=== PATIENT | male | born 1995 | race African-American/Black ===

== ENCOUNTER 2020-01-07 20:42 | Emergency (ER) | payer MEDICAID ==
--- NOTE | 2020-01-07 21:22 | ED ---
Medical Screening - HPI Summary HPI Summary: Patient from [facility] in [place] complains of increasing thoughts of SI x 1 week. Patient states he has been putting a knife to his throat, and his car keys to his throat, and threatening to harm himself every day. Staff at [facility] has called PD every night for the past 4 nights and [facility], evaluated and then discharged. Patient denies HI , any physical and, any oral intake of toxic substances, EtOH, recreational drug use, fever, cough, sore throat, CP, SOB, N/V/D, abdominal pain, change in urine, change in BM. Medical history is anxiety, ADHD, depression, and autism. - History of Current Complaint Chief Complaint: EDSuicidal Stated Complaint: MHE/SI PER PT Time Seen by Provider: 01/07/20 21:14 Onset/Duration: Started Days Ago PMH/Surg Hx/FS Hx/Imm Hx Endocrine/Hematology History: Denies: Hx Anticoagulant Therapy Cardiovascular History: Denies: Hx Pacemaker/ICD History: Denies: Hx Dialysis Sensory History: Denies: Hx Eye Prosthesis Opthamlomology History: Denies: Hx Legally Blind EENT History: Denies: Hx Deafness Neurological History: Denies: Hx Dementia Infectious Disease History: No Infectious Disease History: Denies: Traveled Outside the [place] in Last 30 Days - Family History Known Family History: Positive: Non-Contributory - Social History Lives: [facility] Alcohol Use: None Substance Use Type: Reports: None Hx Tobacco Use: Yes Review of Systems Constitutional: Negative Eyes: Negative ENT: Negative Cardiovascular: Negative Respiratory: Negative Gastrointestinal: Negative Genitourinary: Negative Musculoskeletal: Negative Skin: Negative Neurological/Mental Status: Negative Psychological: Other All Other Systems Reviewed And Are Negative: Yes Physical Exam Triage Information Reviewed: Yes Vital Signs On Initial Exam: Initial Vitals Temp Pulse Resp BP Pulse Ox 97.2 F 82 20 130/80 97 01/07/20 21:00 01/07/20 21:00 01/07/20 21:00 01/07/20 21:00 01/07/20 21:00 Vital Signs Reviewed: Yes Appearance: Positive: Well-Appearing Skin: Positive: Warm Head/Face: Positive: Normal Head/Face Inspection Eyes: Positive: Normal Neck: Positive: Supple Respiratory/Lung Sounds: Positive: Clear to Auscultation Cardiovascular: Positive: Normal Abdomen Description: Positive: Nontender Musculoskeletal: Positive: Normal Neurological: Positive: Normal Psychiatric: Positive: Normal AVPU Assessment: Alert - [place] Coma Scale Best Eye Response: 4 - Spontaneous Best Motor Response: 6 - Obeys Commands Best Verbal Response: 5 - Oriented Coma Scale Total: 15 Procedures - Sedation Patient Received Moderate/Deep Sedation with Procedure: No Diagnostics - Vital Signs Vital Signs Temp Pulse Resp BP Pulse Ox 01/07/20 21:00 97.2 F 82 20 130/80 97 - Laboratory Result Diagrams: 01/07/20 21:32 01/07/20 21:32 Lab Statement: Any lab studies that have been ordered have been reviewed, and results considered in the medical decision making process. Course/Dx - Course Course Of Treatment: Patient from [facility] in [place] complains of increasing thoughts of SI x 1 week. Patient states he has been putting a knife to his throat, and his car keys to his throat, and threatening to harm himself every day. Staff at [facility] has called PD every night for the past 4 nights and [facility], evaluated and then discharged. Patient denies HI, any physical and, any oral intake of toxic substances, EtOH, recreational drug use, fever, cough, sore throat, CP, SOB, N/V /D, abdominal pain, change in urine, change in BM. Medical history is anxiety, ADHD, depression, and autism. Vital signs within normal limits. - Diagnoses Provider Diagnoses: Depressive episode Discharge ED - Sign-Out/Discharge Documenting (check all that apply): Sign-Out Patient Signing out patient TO: Angie Miguel - Discharge Plan Condition: Stable Disposition: HOME Patient Education Materials: Depression (DC) Referrals: Care [facility] [Outside] - Billing Disposition and Condition Condition: STABLE Disposition: Home
--- OUTSIDE RECORDS SUMMARY | 2020-01-07 21:27 | XMS REPORT | Continuity of Care Document ---
:1995 Author Organization [facility] [place] [facility] Address [address] [place] [address] Phone Care Team Providers Name Role Phone [facility], UNKNOWN Unavailable Unavailable Allergies, Adverse Reactions, Alerts Substance Reaction Status Substance Type Unknown WARNIN allergy(ies) could not be collected because the type is not supported. Please contact [facility] for further details. Medications Medication Instructions Dosage Effective Dates Status Comments (start - stop) divalproex ER 500 mg take 1 tablet by oral 500 MG - Active tablet,extended route every day release 24 hr docusate sodium 100 take 2 capsule by oral 200 MG - Active mg capsule route every day at bedtime as needed Seroquel 100 mg take 1 tablet by oral - Active tablet route twice daily alprazolam 2 mg Take 1 tablet by oral - Active MDD 1 tablet route every night Tylenol 325 mg tablet take 2 tablet by oral 650 MG - Active route every 4 hours as needed as needed for Fever Problems Condition Effective Dates (start - stop) Clinical Status Bipolar affective disorder, currently depressed, mild Adjustment disorder with mixed anxiety and depressed mood Autism spectrum Mood disorder Adjustment disorder with mixed anxiety and depressed mood Autism spectrum PPD screening test Dysuria Adjustment disorder with mixed anxiety and depressed mood Autism spectrum Mood disorder Weight loss PPD screening test Procedure and treatment not carried - out for other reasons Sleep disorder Mood disorder Adjustment disorder with mixed anxiety and depressed mood Autism spectrum Body mass index (BMI) 45.0-49.9, adult Body mass index (BMI) 39.0-39.9, adult - Autism spectrum Adjustment disorder with mixed anxiety and depressed mood Mood disorder Sleep disorder General medical exam Autism spectrum Sleep disorder Adjustment disorder with mixed anxiety and depressed mood PPD screening test Mood disorder Body mass index (BMI) 45.0-49.9, adult - Procedures Procedure Date Procedure Unknown Results Test Name Date and Time Measure Units Reference Range Abnormal Flag Status Comments Unknown Encounters Encounter Practice Location Reason(s) Diagnoses Date Provider Providers Description For Visit Copied on Encounter 0001 - Emergency [facility], Room - [facility] [address] 0 UNKNOWN. . [facility], [place], [address], [place] tel:[phone] - [facility] Bipolar Dec-2 PIETRUSZKIEWIC [facility], Primary affective Z KATE. 57 Care disorder, 9 57 [facility], [facility], Hospitalist Clayton mildAdjustment Program [place], [place], disorder with [address], [address], [place] mixed anxiety [place], tel:+60 [place], [address]. [id number] moodAutism tel:[phone] spectrum [phone] - [facility] Mood Dec- SHIRA ELY. [facility], Primary disorderAdjustm [address] Care ent disorder 9 [facility] [place], [address]. [place], anxiety and tel:[phone] Clayton depressed [address] [place] [address], moodAutism [address], [place] spectrumPPD tel:+60 screening test [phone] 0001 - [facility] Dysuria Dec-0 YARDE DAVINIA. [facility], Walk-In [address] [place], [place], Street, [address]. [place] tel:[phone] [place], [place], [address], [place] tel:[phone] 0001 - [facility] Adjustment Nov- SHIRA ELY. [facility] Inc, Primary disorder with [address] Care mixed anxiety 9 [facility] [place], [address], moodAutism tel:[phone] Clayton spectrumMood [address] [place] [address], disorderWeight [address], [place] loss tel:+ [phone] 0001 - [facility] PPD screening CALE RENAE. [facility] Inc, Primary test [address] Care 9 , [place], [place], [address]. [address], tel:[phone] [place] [address] [place] [address], [address], [place] tel:+ [phone] 0001 - [facility] Procedure and Sep-0 ROSA MARIAKY SOLIS. [facility] Inc, Primary treatment not [address] Care carried out for 9 , [place], [facility], [address]. Street, tel:[phone] Clayton [address] [place] [address], [address], [place] tel:+ [phone] 0001 - [facility] Sleep Aug- SHIRA SOLIS. [facility] Inc, Primary disorderMood 0 [address] Care disorderAdjustm 9 [facility], [facility] [place], [address]. Street, with mixed tel:[phone] Clayton anxiety and [address] [place] [address], depressed [address], [place] moodAutism tel:+60 spectrumBody [phone] mass index (BMI) 45.0-49.9, adultBody mass index (BMI) 39.0-39.9, adult 0001 - [facility] Autism John-0 ROSA MARIAKY SOLIS. [facility] Inc, Primary spectrumAdjustm [address] Care ent disorder 9 [facility], [facility], [address]. [address], anxiety and tel:[phone] Clayton depressed [address] [place] [address], moodMood [address], [place] disorderSleep tel:[phone] disorder [phone] 0001 - [facility] General medical Edgar- ROSA MARIAKY SOLIS. [facility] Inc, Primary examAutism [address] Care spectrumSleep 9 , [place], [facility] [place], [address]. [address], ent disorder tel:[phone] Clayton with mixed [address] [place], [place], anxiety [place] [address], [place] depressed tel:+ moodPPD [phone] screening testMood disorderBody mass index (BMI) 45.0-49.9, adult Family History Family Member Diagnosis Age At Onset Sister ADD/ADHD Immunizations Vaccine Date Status Comments Immunization Unknown Payers Payer name Insurance type Covered democrat ID Authorization(s) Medicaid Yury [id number] Social History Type Description Quantity Date Captured Comments Unknown Vital Signs Date / Height Weight BMI Pulse Blood Temperature Respiratory Body Head BMI Time: Rate Pressure Rate Surface Circumference percentile Area Unknown Chief Complaint And Reason For Visit No information Reason For Referral Reason For Referral Unknown Plan Of Care Date Type Action Status Referral Ordered: ordered Referrals: Sleep Disorders. Evaluate and treat Date Type Problem Goal Intervention Status Start Date Unknown History Of Present Illness Encounter Date Complaint History Of Present Illness No information Functional Status Encounter Date Functional Assessment Cognitive Assessment Unknown Medications Administered Medication Instructions Dosage Effective Dates (start - stop) Status Comments Drug Treatment Unknown Instructions Date Instruction Additional Information Doing well today.Moving to care home Related to Autism spectrum today. Will contact care home RN today and discuss medication plan. Continue with medications outlined Related to Adjustment disorder above. with mixed anxiety and depressed mood Medications were consolidated today. Related to Bipolar affective He is to take alprazolam up to twice disorder, currently depressed, daily as needed for anxiety, divalproex mild ER twice daily and Seroquel 100 mg was increased to twice a day to help with sleep.Active medication list was given. Need to complete Friday before 5 Related to PPD screening test See above Related to Adjustment disorder with mixed anxiety and depressed mood Decrease Depakote to 500 mg once daily Related to Mood disorder as you have had tiredness during dayIncrease Seroquel to 100 mg at bedtime as you have had insomniaContinue Xanax at bedtime, add 0.5 tablet (1 mg tablet up to twice daily during day as needed for anxiety)You were giving Risperdal although this med was stopped, so we will stay off of this. Follow up with psych 10/28 for med management. See above Related to Autism spectrum Please abstain from sexual activity Related to Dysuria until you receive results. Call office in 2-3 days for results of cultures. Drink plenty of water. Do not delay urinating when you feel the need to urinate. Keep your genital area clean. Empty your bladder completely when you urinate. Wear all-cotton or cotton-crotch underwear. Change underwear every day. If new or worsening symptoms such as high fever or vomiting occur then go to the ER for evaluation, otherwise followup with your primary doctor within 5 days for recheck. Patient exercising and watching diet Related to Weight loss now.Labs reviewed and no signs of malnourishment Continue with counseling with Ludwin at Related to Autism spectrum article 12 Continue current medications. You are Related to Adjustment disorder taking Depakote and xanax at bedtime. with mixed anxiety and depressed Risks and benefits of new medication mood discussed.You have not been taking Seroquel or Risperdal.Restart Seroquel at bedtimeFollow up one month See above Related to Mood disorder You state that snoring has not been a Related to Sleep disorder concernEncourage weight lossConsider sleep center in future See above Related to Adjustment disorder with mixed anxiety and depressed mood Please call with what meds you are Related to Mood disorder taking.Follow up with PSYCH for medication management.2 month follow up Encourage being as active as possible. Related to Body mass index (BMI) 45.0-49.9, adult See above Related to Autism spectrum Last visit we referred you to sleep Related to Sleep disorder center. See above Related to Adjustment disorder with mixed anxiety and depressed mood Last visit restarted medication.We Related to Mood disorder started Depakote (divalproex) 500 mg once daily. We can increase to thousand once daily (two pills once dailyAppears Seroquel (quetiapine) was not approved, will attempt to get approval and start 100 mg. Decrease Risperdal 2 mg twice a day.Decrease alprazolam to once daily at bedtime as afternoon dose making you drowsyImportant to follow up with psych.Important to get fasting lab work See above Related to Autism spectrum See above Related to Mood disorder One today, one in 48-72 hours. This is Related to PPD screening test between 10 am on and 10 am Friday. See above, provided list of mental Related to Adjustment disorder health resources.You have been off of with mixed anxiety and depressed medication for two weeks now.Restart mood medication slowly.Follow up two weeks.Will start Depakote 500 mg once daily then increase to 1000 mg once daily if tolerating.Start Seroquel 100 mg at bedtime. If tolerating increase to 300 mg at two week paige.Restart Risperdal 2 mg once daily, then after two days can do twice a day, then after another two days can do 2 mg three times dailyRestart alprazolam. If worsening of symptoms, can follow up in office. Recommend referral to sleep center for Related to Sleep disorder workup for sleep apnea. Yearly eye exams.Dental exams twice a Related to General medical exam year for cleanings.Follow a diet that is low in sodium and saturated fats. Eat lots of fiber, fruits, and vegetables.Exercise at least 3 times each week at least 30 minutes at a time for health maintenance.Fasting labs.Thank you for allowing us to be a part of your care. Recommend following with psychProvided Related to Autism spectrum you resources of local groups in the area.
--- OUTSIDE RECORDS SUMMARY | 2020-01-07 21:27 | XMS REPORT | Continuity of Care Document ---
:1995 Author Organization [facility] Address [address] [place] [address] Phone Care Team Providers Name Role Phone [facility], UNKNOWN Unavailable Unavailable Allergies, Adverse Reactions, Alerts Substance Reaction Status Substance Type Unknown WARNIN allergy(ies) could not be collected because the type is not supported. Please contact [facility] for further details. Medications Medication Instructions Dosage [...] Visit Copied on Encounter 0001 - Emergency [facility], Room - [facility] 0-202 SERVICE 57 0 UNKNOWN. . [facility], [place], [address], [place] tel:[phone] 0001 - [facility] Bipolar Dec-2 PIETRUSZKIEWIC [facility] [address], Primary affective Z KATE. 57 Care disorder, 9 57 [facility], [facility], Hospitalist Clayton mildAdjustment Program [place], [place], disorder with [address], [address], [place] mixed anxiety [place], tel:+60 [place], [address]. [id number] moodAutism tel:[phone] spectrum [phone] - [facility] Mood Dec- SHIRA ELY. [facility] [address], Primary disorderAdjustm [address] Care ent disorder 9 [facility] [place], [address]. [place], anxiety and tel:[phone] Clayton depressed [address] [place] [address], moodAutism [address], [place] spectrumPPD tel:+60 screening test [phone] 0001 - [facility] Dysuria Dec-0 YARDE DAVINIA. [facility] [address], Walk-In 2 [address] [place], [place], Street, [address]. [place] tel:[phone] [place], [place], [address], [place] tel:[phone] 0001 - [facility] Adjustment Nov- SHIRA ELY. [facility] Inc, Primary disorder with [address] Care mixed anxiety 9 [place], [address]. Street, moodAutism tel:[phone] Clayton spectrumMood [address] [place] [address], disorderWeight [address], [place] loss tel:+ [phone] 0001 - [facility] PPD screening CALE RENAE. [facility] Inc, Primary test 0 [address] Care 9 , [place], [place], [address]. Street, tel:[phone] Clayton [address] [place] [address], [address], [place] tel:+ [phone] 0001 - [facility] Procedure and Sep-0 ROSA MARIAKY SOLIS. [facility] Inc, Primary treatment not [address] Care carried out for 9 , [place], [facility] [place], [address]. Street, tel:[phone] Clayton [address] [place] [address], [address], [place] tel:+ [phone] 0001 - [facility] Sleep Aug- SHIRA SOLIS. [facility] Inc, Primary disorderMood 0 [address] Care disorderAdjustm 9 [facility], [facility] [place], [address]. [address], with mixed tel:[phone] Clayton anxiety and [address] [place] [address], depressed [address], [place] moodAutism tel:+60 spectrumBody [phone] mass index (BMI) 45.0-49.9, adultBody mass index (BMI) 39.0-39.9, adult 0001 - [facility] Autism John-0 ROSA MARIAKY SOLIS. [facility] Inc, Primary spectrumAdjustm [address] Care ent disorder 9 [facility], [facility] [place], [address], anxiety and tel:[phone] Clayton depressed [address] [place] [address], moodMood [address], [place] disorderSleep tel:+60 disorder [phone] 0001 - [facility] General medical Edgar- ROSA MARIAKY SOLIS. [facility] Inc, Primary examAutism [address] Care spectrumSleep 9 , [place], [facility] [place], [address], ent disorder tel:[phone] Clayton with mixed [address] [place], [place], anxiety [place] [address], [place] depressed tel:+ moodPPD [phone] screening testMood disorderBody mass index (BMI) 45.0-49.9, adult Family History Family Member Diagnosis Age At Onset Sister ADD/ADHD Immunizations Vaccine Date Status Comments Immunization Unknown Payers Payer name Insurance type Covered green party ID Authorization(s) Medicaid Yury [id number] Social History Type Description Quantity Date Captured [...] Instruction Additional Information Doing well today.Moving to [facility] Related to Autism spectrum today. Will contact [facility] RN today and discuss medication plan. Continue [...]
--- OUTSIDE RECORDS SUMMARY | 2020-01-07 21:27 | XMS REPORT | Continuity of Care Document ---
:1994 Author Organization [facility] Address [address] [place] [address] Phone Care Team Providers Name Role Phone [facility], UNKNOWN Unavailable Unavailable Allergies, Adverse Reactions, Alerts Substance Reaction Status Substance Type Unknown WARNIN allergy(ies) could not be collected because the type is not supported. Please contact [facility] for further details. Medications Medication Instructions [...] Visit Copied on Encounter 0001 - Emergency [facility], Room - [facility] [address] 0 UNKNOWN. . [facility], [place], [address], [place] tel:[phone] 0001 - [facility] Bipolar Dec-2 PIETRUSZKIEWIC [facility], Primary affective Z KATE. 57 Care disorder, 9 57 [facility], Hospitalist Clayton mildAdjustment Program [place], [place], disorder with Wing 3, [address], [place] mixed anxiety [place], tel:+60 [place], [address]. [phone] moodAutism tel:[phone] spectrum [phone] - [facility] Mood Dec- SHIRA ELY. [facility], Primary disorderAdjustm [address] Care ent disorder 9 [facility] [place], [address]. [place], anxiety and tel:[phone] [place] depressed [address] [place] [address], moodAutism [address], [place] spectrumPPD tel:+60 screening test [phone] 0001 - [facility] Dysuria Dec-0 YARDE DAVINIA. [facility], Walk-In 2 [address] Center 9 [place], [place], Street, [address]. [place] tel:[phone] [place], [place], [address], [place] tel:[phone] 0001 - [facility] Adjustment Nov- SHIRA ELY. [facility], Primary disorder with [address] Care mixed anxiety 9 [facility], [address], moodAutism tel:[phone] Clayton spectrumMood [address] [place] [address], disorderWeight [address], [place] loss tel:+ [phone] 0001 - [facility] PPD screening CALE RENAE. [facility] Inc, Primary test 0 [address] Care 9 , [place], [place], [address]. Street, tel:[phone] [place] [address] [place] [address], [address], [place] tel:+ [phone] 0001 - [facility] Procedure and Sep-0 ROSA MARIAKY SOLIS. [facility], Primary treatment not [address] Care carried out for 9 , [place], [facility] [place], [address]. Street, tel:[phone] [place] [address] [place] [address], [address], [place] tel:+ [phone] 0001 - [facility] Sleep Aug- SHIRA SOLIS. [facility], Primary disorderMood 0 [address] Care disorderAdjustm 9 [facility], [place], [address]. Street, with mixed tel:[phone] Clayton anxiety and [address] [place] [address], depressed [address], [place] moodAutism tel:+60 spectrumBody [phone] mass index (BMI) 45.0-49.9, adultBody mass index (BMI) 39.0-39.9, adult 0001 - [facility] Autism John-0 ROSA MARIAKY SOLIS. [facility], Primary spectrumAdjustm [address] Care ent disorder 9 [facility], [facility] [place], [address], anxiety and tel:[phone] [place] depressed [address] [place] [address], moodMood [address], [place] disorderSleep tel:+60 disorder [phone] 0001 - [facility] General medical Edgar- ROSA MARIAKY SOLIS. [facility], Primary examAutism [address] Care spectrumSleep 9 , [place], [place], [address] Street, ent disorder tel:[phone] [place] with mixed 323 [place], [place], anxiety [place] [address], [place] depressed tel:+ moodPPD [phone] screening testMood disorderBody mass index (BMI) 45.0-49.9, adult Family History Family Member Diagnosis Age At Onset Sister ADD/ADHD Immunizations Vaccine Date Status Comments Immunization Unknown Payers Payer name Insurance type Covered constitution party ID Authorization(s) Medicaid Yury [id number] Social History Type Description Quantity Date Captured [...] Instruction Additional Information Doing well today.Moving to fpc Related to Autism spectrum today. Will contact fpc RN today and discuss medication plan. Continue [...]
--- OUTSIDE RECORDS SUMMARY | 2020-01-07 21:27 | XMS REPORT | Continuity of Care Document ---
:1994 Author Organization [address] [place] [address] Address [address] [place] [address] Phone Care Team Providers Name Role Phone SOLIS LEIGH Unavailable Unavailable Allergies, Adverse Reactions, Alerts Substance Reaction Status Substance Type Unknown WARNIN allergy(ies) could not be collected because the type is not supported. Please contact [facility] for further details. Medications Medication Instructions [...] For Visit Copied on Encounter 0001 - S SHIRA ELY. [employer] [employer] [facility], Primary [address] Care 0 , [facility], [address]. [address], tel:[phone] [address], [address], [place] tel:[phone] 0001 - S Bipolar Sep- PIETRUSZKIEWIC S Inc, Primary affective Z KATE. Care disorder, 9 [facility] currently , [place], depressed, Hospitalist Clayton mildAdjustment Program [place], [place], disorder with Wing 3, [address], [place] mixed anxiety [place], tel:[phone] [place], [address]. [phone] moodAutism tel:[phone] spectrum 622 0001 - S Mood Sep- SHIRA ELY. S Inc, Primary disorderAdjustme [address] Care nt disorder with 9 , [facility] [place] [facility] [place], [address] Street, and depressed tel:[phone] [address], spectrumPPD [address], [place] screening test tel:[phone] 0001 - S Dysuria Dec-0 YARDE DAVINIA. [employer], Walk-In [address] [place] [address], [address], [address]. [place] tel:[phone] [place], [place], [address], [place] tel:[phone] 0001 - S Adjustment Aug- SHIRA ELY. [employer], Primary disorder with [address] Care mixed anxiety [address], [place], [place], [address]. Street, moodAutism tel:[phone] Clayton spectrumMood [address] [place] [address], disorderWeight [address], [place] loss tel:[phone] 0001 - [facility] P[facility] screening CALE RENAE. [facility], Primary test 0 [address], [place], [place], [address]. Street, tel:[phone] [place] [address] [place] [address], [address], [place] tel:[phone] 0001 - [facility] Procedure and Sep-0 SHIRA ORTEGAN. [facility], Primary treatment not [address] Care carried out for 9 St, [place], [facility] [place], [address]. [place], tel:[phone] [address], [address], [place] tel:[phone] 0001 - [facility] Sleep Aug- SHIRA ORTEGAN. [facility], Primary disorderMood 0 [address], [place], [facility] [place], [address]. [address], mixed anxiety tel:[phone] Clayton and depressed [address] [place] [address], moodAutism [address], [place] spectrumBody tel:+60 mass index (BMI) [id number] 45.0-49.9, adultBody mass index (BMI) 39.0-39.9, adult 0001 - [facility] Autism John-0 SHIRA SOLIS. S Inc, Primary spectrumAdjustme [address] Care nt disorder with 9 St, [place], [place], [address]. Street, and depressed tel:[phone] Clayton moodMood [address] [place] [address], disorderSleep [address], [place] disorder tel:[phone] 0001 - [facility] General medical Edgar- SHIRA SOLIS. [facility], Primary examAutism [address], [place], [facility] [place], [address]. Street, nt disorder with tel:[phone] Clayton mixed anxiety [address] [place] [address], and depressed [address], [place] moodPPD tel: screening [phone] testMood disorderBody mass index (BMI) 45.0-49.9, adult Family History Family Member Diagnosis Age At Onset Sister ADD/ADHD Immunizations Vaccine Date Status Comments Immunization Unknown Payers Payer name Insurance type Covered libertarian ID Authorization(s) Medicaid Yury [id number] Social History Type Description Quantity Date Captured Comments Alcohol Use Details Unknown Caffeine Use Details Unknown Tobacco Use Status Smoking Status Unknown Vital Signs Date / Height Weight [...] Instruction Additional Information Doing well today.Moving to senior living Related to Autism spectrum today. Will contact senior living RN today and discuss medication plan. Continue [...] of malnourishment Continue with counseling with Ludwin vela Related to Autism spectrum article 12 Continue [...]
--- OUTSIDE RECORDS SUMMARY | 2020-01-07 21:27 | XMS REPORT | Continuity of Care Document ---
:1994 Author Organization [address] [place] [address] Address [address] [place] [address] Phone Care Team Providers Name Role Phone SOLIS LEIGH Unavailable Unavailable Allergies, Adverse Reactions, Alerts Substance Reaction Status Substance Type Unknown WARNIN allergy(ies) could not be collected because the type is not supported. Please contact [facility] for further details. Medications Medication Instructions Dosage [...] Visit Copied on Encounter 0001 - Emergency SHIRA ELY. [employer], [address] 0 , [facility], [address]. [place], tel:[phone] [address], [address], [place] tel:[phone] 0001 - [facility] Bipolar Sep-2 PIETRUSZKIEWIC [facility] Inc, Primary affective Z KATE. Care disorder, [facility] currently , [place], depressed, Hospitalist Clayton mildAdjustment Program [place], [place], disorder with Wing [address], [address], [place] mixed anxiety [place], tel:+60 [place], [address]. [phone] moodAutism tel:[phone] spectrum 622 0001 - [facility] Mood Dec- SHIRA ELY. S Inc, Primary disorderAdjustm [address] Care ent disorder 9 [facility] [place], [address]. Street, anxiety and tel:[phone] [place] depressed [address] [place] [address], moodAutism [address], [place] spectrumPPD tel:+60 screening test [phone] 0001 - [facility] Dysuria Dec-0 YARDE MICHAEL. [employer], Walk-In [address] [place] [address], Street, [address]. [place] tel:[phone] [place], [place], [address], [place] tel:[phone] 0001 - S Adjustment SHIRA ELY. [employer], Primary disorder with [address] Care mixed anxiety , [place], [facility] [place], [address]. Street, moodAutism tel:[phone] Clayton spectrumMood [address] [place] [address], disorderWeight [address], [place] loss tel:[phone] 0001 - [facility] PPD screening CALE RENAE. S Inc, Primary test 0-[address], [place], [place], [address]. [place], tel:[phone] [place] [address] [place] [address], [address], [place] tel:[phone] 0001 - [facility] Procedure and Sep-0 ROSA MARIAKY SOLIS. [facility] Inc, Primary treatment not [address]57 Care carried out for 9 , [place], [facility] [place], [address]. [place], tel:[phone] [place] [address] [place] [address], [address], [place] tel:[phone] 0001 - [facility] Sleep Aug- ROSA MARIAKY SOLIS. S Inc, Primary disorderMood 0 [address] Care disorderAdjustm 9 , [place], [facility] [place], [address]. Street, with mixed tel:[phone] Clayton anxiety and [address] [place] [address], depressed [address], [place] moodAutism tel:+60 spectrumBody [phone] mass index (BMI) 45.0-49.9, adultBody mass index (BMI) 39.0-39.9, adult 0001 - [facility] Autism John-0 ROSA MARIAKY SOLIS. S Inc, Primary spectrumAdjustm [address]57 Care ent disorder 9 St, [place], [facility] [place], [address]. Street, anxiety and tel:[phone] Clayton depressed [address] [place] [address], moodMood [address], [place] disorderSleep tel:+60 disorder [phone] 0001 - [facility] General medical Edgar- ROSA MARIAKY SOLIS. [facility] Inc, Primary examAutism [address], [place], [place], [address]. Street, ent disorder tel:[phone] [place] with mixed [address] [place], [place], anxiety [place] [address], [place] depressed tel: moodPPD [phone] screening testMood disorderBody mass index (BMI) 45.0-49.9, adult Family History Family Member Diagnosis Age At Onset Sister ADD/ADHD Immunizations Vaccine Date Status Comments Immunization Unknown Payers Payer name Insurance type Covered alliance party ID Authorization(s) Medicaid Yury [id number] Social History Type Description Quantity Date Captured [...] Instruction Additional Information Doing well today.Moving to assisted Related to Autism spectrum today. Will contact assisted RN today and discuss medication plan. Continue [...]
--- OUTSIDE RECORDS SUMMARY | 2020-01-07 21:27 | XMS REPORT | Continuity of Care Document ---
:1994 Author Organization [facility] Address [address] [place] [address] Phone Care Team Providers Name Role Phone ADITI SANTIAGO Unavailable Unavailable Allergies, Adverse Reactions, Alerts Substance Reaction Status Substance Type Unknown WARNIN allergy(ies) could not be collected because the type is not supported. Please contact [facility] for further details. Medications Medication Instructions Dosage [...] For Visit Copied on Encounter 0001 - [facility] [place]. S Inc, Primary 0-[address] Care 0 , [facility], [place], [place], Street, [address]. [place] tel:[phone] [place], [place], [address], [place] tel:[phone] 0001 - [facility] Bipolar Sep- PIETRUSZKIEWIC S Inc, Primary affective Z KATE. Care disorder, [facility] currently , Street, depressed, Hospitalist [place] mildAdjustment Program [place], [place], disorder with Wing [address], [address], [place] mixed anxiety [place], tel:[phone] [place], [address]. [phone] [facility] tel:[phone] spectrum 622 0001 - [facility] Mood Dec- SHIRA ELY. [facility] Inc, Primary disorderAdjustme [address] Care nt disorder with 9 , [facility] [place], [address]. Street, and depressed tel:[phone] Clayton moodAutism [address] [place], [place], spectrumPPD [address], [place] screening test tel:[phone] 0001 - S Dysuria Dec-0 YARDE DAVINIA. [employer], Walk-In [address] [place] 57 Center 9 [facility], [place], [place], Street, [address]. [place] tel:[phone] [place], [place], [address], [place] tel:[phone] 0001 - S Adjustment Aug- SHIRA ELY. [employer], Primary disorder with [address] Care mixed anxiety 9 [address], [place], [place], [address]. Street, moodAutism tel:[phone] Clayton spectrumMood [address] [place] [address], disorderWeight [address], [place] loss tel:[phone] 0001 - [facility] PPD screening CALE RENAE. [facility] Inc, Primary test 0 [address], [place], [place], [address]. [place], tel:[phone] Clayton [address] [place] [address], [address], [place] tel:[phone] 0001 - [facility] Procedure and Sep- SHIRA ORTEGAN. [facility] Inc, Primary treatment not [address] Care carried out for 9 St, [place], [place], [address]. [place], tel:[phone] [address], [address], [place] tel:[phone] 0001 - [facility] Sleep Aug- SHIRA ORTEGAN. [facility] Inc, Primary disorderMood 0 [address], [place], [place], [address]. Street, mixed anxiety tel:[phone] Clayton and depressed [address] [place] [address], moodAutism [address], [place] spectrumBody tel:+60 mass index (BMI) [id number] 45.0-49.9, adultBody mass index (BMI) 39.0-39.9, adult 0001 - [facility] Autism John- SHIRA SOLIS. S Inc, Primary spectrumAdjustme [address] Care nt disorder with 9 [address], [place], [place], [address]. Street, and depressed tel:[phone] Clayton moodMood [address] [place] [address], disorderSleep [address], [place] disorder tel:[phone] 0001 - [facility] General medical Edgar- SHIRA SOLIS. [facility] Inc, Primary examAutism [address], [place], [place], [address]. Street, nt disorder with tel:[phone] Clayton mixed anxiety [address] [place] [address], and depressed [address], [place] moodPPD tel: screening [phone] testMood disorderBody mass index (BMI) 45.0-49.9, adult Family History Family Member Diagnosis Age At Onset Sister ADD/ADHD Immunizations Vaccine Date Status Comments Immunization Unknown Payers Payer name Insurance type Covered green party ID Authorization(s) Medicaid Yury [id number] Social History Type Description Quantity Date Captured Comments Alcohol Use Details Unknown Caffeine Use Details Unknown Tobacco Use Status Unknown Smoking Status Unknown Vital Signs Date / [...] Instruction Additional Information Doing well today.Moving to [facility]p Related to Autism spectrum today. Will contact [facility]p RN today and discuss medication plan. Medications were consolidated today. Related to Bipolar affective He is to take alprazolam up to twice disorder, currently depressed, daily as needed for anxiety, divalproex mild ER twice daily and Seroquel 100 mg was increased to twice a day to help with sleep.Active medication list was given. Continue with medications outlined Related to Adjustment disorder above. with mixed anxiety and depressed mood Need to complete Friday before 5 Related to PPD screening test Decrease Depakote to 500 mg once daily [...] for med management. See above Related to Adjustment disorder with mixed anxiety and depressed mood See above Related to Autism spectrum Please [...] month See above Related to Mood disorder See above Related to Adjustment disorder with mixed anxiety and depressed mood You state that snoring has not been a Related to Sleep disorder concernEncourage weight lossConsider sleep center in future Please call with what meds you are Related to Mood disorder taking.Follow up with [facility] for medication management.2 month follow up See above Related to Autism spectrum Encourage being as active as possible. Related [...] fasting lab work See above Related to Mood disorder One [...]
--- OUTSIDE RECORDS SUMMARY | 2020-01-07 21:27 | XMS REPORT | Continuity of Care Document ---
:1994 Author Organization [facility] Address [address] [place] [address] Phone Care Team Providers Name Role Phone [facility], UNKNOWN Unavailable Unavailable Allergies, Adverse Reactions, Alerts Substance Reaction Status Substance Type Unknown WARNIN allergy(ies) could not be collected because the type is not supported. Please contact [facility] for further details. Medications Medication Instructions [...] Visit Copied on Encounter 0001 - Emergency [facility] Inc, Room - [facility] 0-202 SERVICE 57 0 UNKNOWN. . [facility], [place], [address], [place] tel:[phone] 2019 - [facility] Bipolar Sep- PIETRUSZKIEWIC [facility], Primary affective Z KATE. 57 Care disorder, 9 57 [facility], [facility], Hospitalist Clayton mildAdjustment Program [place], [place], disorder with Wing [address], [address], [place] mixed anxiety [place], tel:+60 [place], [address]. [phone] moodAutism tel:[phone] spectrum 622 0001 - [facility] Mood Dec- SHIRA ELY. [facility], Primary disorderAdjustm [address] Care ent disorder 9 [facility] [place], [address]. [place], anxiety and tel:[phone] Clayton depressed [address] [place] [address], moodAutism [address], [place] spectrumPPD tel:+60 screening test [phone] 0001 - [facility] Dysuria Dec-0 YARDE DAVINIA. [facility], Walk-In 2 [address] Center 9 [place], [place], Street, [address]. [place] tel:[phone] [place], [place], [address], [place] tel:[phone] 0001 - [facility] Adjustment Nov- SHIRA ORTEGAN. [facility] Inc, Primary disorder with [address] Care mixed anxiety 9 [facility] [place], [address]. Street, moodAutism tel:[phone] Clayton spectrumMood [address] [place] [address], disorderWeight [address], [place] loss tel:+ [phone] 0001 - [facility] PPD screening CALE RENAE. [facility] Inc, Primary test 0 [address] Care 9 , [place], [place], [address]. Street, tel:+[phone] [place] [address] [place] [address], [address], [place] tel:+ [phone] 0001 - [facility] Procedure and Sep-0 ROSA MARIAKY SOLIS. [facility] Inc, Primary treatment not [address] Care carried out for 9 , [place], [facility] [place], [address]. Street, tel:+[phone] [place] [address] [place] [address], [address], [place] tel:+ [phone] 0001 - [facility] Sleep Aug- SHIRA SOLIS. [facility] Inc, Primary disorderMood 0 [address] Care disorderAdjustm 9 [facility], [facility] [place], [address]. Street, with mixed tel:[phone] Clayton anxiety and [address] [place] [address], depressed [address], [place] moodAutism tel:+60 spectrumBody [phone] mass index (BMI) 45.0-49.9, adultBody mass index (BMI) 39.0-39.9, adult 0001 - [facility] Autism John-0 ROSA MARIAKY SOLIS. [facility] Inc, Primary spectrumAdjustm [address] Care ent disorder 9 [facility], [facility] [place], [address]. Street, anxiety and tel:[phone] [place] depressed [address] [place] [address], moodMood [address], [place] disorderSleep tel:+60 disorder [phone] 0001 - [facility] General medical Edgar- ROSA MARIAKY SOLIS. [facility] Inc, Primary examAutism [address] Care spectrumSleep 9 , [place], [facility] [place], [address]. Street, ent disorder tel:[phone] [place] with mixed 323 [place], [place], anxiety [place] [address], [place] depressed tel:+ moodPPD [phone] screening testMood disorderBody mass index (BMI) 45.0-49.9, adult Family History Family Member Diagnosis Age At Onset Sister ADD/ADHD Immunizations Vaccine Date Status Comments Immunization Unknown Payers Payer name Insurance type Covered constitution party ID Authorization(s) Medicaid Yury [id number] Social History Type Description Quantity Date Captured [...] Instruction Additional Information Doing well today.Moving to residential Related to Autism spectrum today. Will contact residential RN today and discuss medication plan. Continue [...]
--- OUTSIDE RECORDS SUMMARY | 2020-01-07 21:27 | XMS REPORT | Continuity of Care Document ---
:1995 Author Organization [address] [place] [address] Address [address] [place] [address] Phone Care Team Providers Name Role Phone SOLIS LEIGH Unavailable Unavailable Allergies, Adverse Reactions, Alerts Substance Reaction Status Substance Type Unknown WARNIN allergy(ies) could not be collected because the type is not supported. Please contact [facility] for further details. Medications Medication Instructions [...] on Encounter 0001 - S SHIRA ELY. [employer], Primary [address] Care 0 , [facility], [address], tel:[phone] [address], [address], [place] tel:[phone] 0001 - S Bipolar Sep- [employer] S Inc, Primary affective Z KATE. Care disorder, 9 [facility] currently , [place], depressed, Hospitalist [place] mildAdjustment Program [place], [place], disorder with Wing 3, [address], [place] mixed anxiety [place], tel:[phone] [place], [address]. [id number] moodAutism tel:[phone] spectrum 622 0001 - S Mood Sep- SHIRA ELY. S Inc, Primary disorderAdjustme [address] Care nt disorder with 9 , [facility] [place], [address]. Street, and depressed tel:[phone] Clayton [address], spectrumPPD [address], [place] screening test tel:[phone] 0001 - S Dysuria Dec-0 YARDE DAVINIA. [employer], Walk-In [address], Street, [address]. [place] tel:[phone] [place], [place], [address], [place] tel:[phone] 0001 - S Adjustment Aug- SHIRA ELY. [employer], Primary disorder with [address] Care mixed anxiety [address], [place], [place], [address]. Street, moodAutism tel:[phone] Clayton spectrumMood [address] [place] [address], disorderWeight [address], [place] loss tel:[phone] 0001 - [facility] PPD screening CALE RENAE. [facility] Inc, Primary test [address], [place], [place], [address]. Street, tel:[phone] [place] [address] [place] [address], [address], [place] tel:[phone] 0001 - [facility] Procedure and Sep-0 SHIRA ORTEGAN. [facility] Inc, Primary treatment not [address] Care carried out for 9 St, [place], [facility] [place], [address]. [place], tel:[phone] [address], [address], [place] tel:[phone] 0001 - [facility] Sleep Aug- SHIRA ORTEGAN. [facility] Inc, Primary disorderMood 0 [address], [place] [place], [address], mixed anxiety tel:[phone] Clayton and depressed [address] [place] [address], moodAutism [address], [place] spectrumBody tel:+60 mass index (BMI) [id number] 45.0-49.9, adultBody mass index (BMI) 39.0-39.9, adult 0001 - [facility] Autism John-0 SHIRA SOLIS. S Inc, Primary spectrumAdjustme [address] Care nt disorder with 9 St, [place], [place], [address]. Street, and depressed tel:[phone] [place] moodMood [address] [place] [address], disorderSleep [address], [place] disorder tel:[phone] 0001 - [facility] General medical Edgar- SHIRA SOLIS. [facility] Inc, Primary examAutism [address], [place], [facility] [place], [address]. Street, nt disorder with tel:[phone] [place] mixed anxiety [address] [place] [address], and depressed [address], [place] moodPPD tel: screening [phone] testMood disorderBody mass index (BMI) 45.0-49.9, adult Family History Family Member Diagnosis Age At Onset Sister ADD/ADHD Immunizations Vaccine Date Status Comments Immunization Unknown Payers Payer name Insurance type Covered republican ID Authorization(s) Medicaid Yury [id number] Social History Type Description Quantity Date Captured [...] Instruction Additional Information Doing well today.Moving to skilled nursing Related to Autism spectrum today. Will contact skilled nursing RN today and discuss medication plan. Continue [...]
--- OUTSIDE RECORDS SUMMARY | 2020-01-07 21:27 | XMS REPORT | Continuity of Care Document ---
:1994 Author Organization [address] [place] [address] Address [address] [place] [address] Phone Care Team Providers Name Role Phone SOLIS LEIGH Unavailable Unavailable Allergies, Adverse Reactions, Alerts Substance Reaction Status Substance Type Unknown WARNIN allergy(ies) could not be collected because the type is not supported. Please contact [facility] for further details. Medications Medication [...] on Encounter 0001 - Emergency SHIRA ELY. [employer], [address] 0 , [facility], [address]. [place], tel:[phone] [address], [address], [place] tel:[phone] 0001 - [facility] Bipolar Dec-2 PIETRUSZKIEWIC [facility] Inc, Primary affective Z KATE. Care disorder, [facility] , [place], depressed, Hospitalist [place] mildAdjustment Program [place], [place], disorder with Wing 3, [address], [place] mixed anxiety [place], tel:[phone] [place], [address]. [id number] moodAutism tel:[phone] spectrum 622 0001 - [facility] Mood Dec- SHIRA LEY. S Inc, Primary disorderAdjustm [address] Care ent disorder 9 [facility] [place], [address] Street, anxiety and tel:[phone] [place] depressed [address] [place] [address], moodAutism [address], [place] spectrumPPD tel:+60 screening test [phone] 0001 - [facility] Dysuria Dec-0 YARDE MICHAEL. [employer], Walk-In [address] [place] [address] [place] [address], Street, [address]. [place] tel:[phone] [place], [place], [address], [place] tel:[phone] 0001 - S Adjustment SHIRA ELY. [employer], Primary disorder with [address] Care mixed anxiety , [place], [facility] [place], [address]. Street, moodAutism tel:[phone] [place] spectrumMood [address] [place] [address], disorderWeight [address], [place] loss tel:[phone] 0001 - [facility] PPD screening CALE RENAE. S Inc, Primary test 0-[address], [place], [place], [address]. [place], tel:[phone] Clayton [address] [place] [address], [address], [place] tel:[phone] 0001 - [facility] Procedure and Sep-0 ROSA MARIAKY SOLIS. [facility] Inc, Primary treatment not [address] Care carried out for 9 , [place], [facility] [place], [address]. [place], tel:[phone] Clayton [address] [place] [address], [address], [place] tel:[phone] 0001 - [facility] Sleep Aug- ROSA MARIAKY SOLIS. S Inc, Primary disorderMood 0 [address] Care disorderAdjustm 9 , [place], [facility] [place] [place], [address]. Street, with mixed tel:[phone] Clayton anxiety and [address] [place] [address], depressed [address], [place] moodAutism tel:+60 spectrumBody [id number] mass index (BMI) 45.0-49.9, adultBody mass index (BMI) 39.0-39.9, adult 0001 - [facility] Autism John-0 ROSA MARIAKY SOLIS. S Inc, Primary spectrumAdjustm [address] Care ent disorder 9 St, [place], [facility] [place], [address]. Street, anxiety and tel:[phone] [place] depressed [address] [place] [address], moodMood [address], [place] disorderSleep tel:+60 disorder [phone] 0001 - [facility] General medical Edgar- ROSA MARIAKY SOLIS. [facility] Inc, Primary examAutism [address], [place], [place], [address]. [address], ent disorder tel:[phone] [place] with mixed [address] [place], [place], anxiety [place] [address], [place] depressed tel: moodPPD [phone] screening testMood disorderBody mass index (BMI) 45.0-49.9, adult Family History Family Member Diagnosis Age At Onset Sister ADD/ADHD Immunizations Vaccine Date Status Comments Immunization Unknown Payers Payer name Insurance type Covered alliance party ID Authorization(s) Medicaid Yury [id number] Social History Type Description Quantity Date Captured [...] Instruction Additional Information Doing well today.Moving to correction Related to Autism spectrum today. Will contact correction RN today and discuss medication plan. Continue [...]
--- OUTSIDE RECORDS SUMMARY | 2020-01-07 21:27 | XMS REPORT | Continuity of Care Document ---
:1994 Author Organization [address] [place] [address] Address [address] [place] [address] Phone Care Team Providers Name Role Phone SOLIS LEIGH Unavailable Unavailable Allergies, Adverse Reactions, Alerts Substance Reaction Status Substance Type Unknown WARNIN allergy(ies) could not be collected because the type is not supported. Please contact [facility] for further details. Medications Medication Instructions [...] on Encounter 0001 - Emergency SHIRA ELY. [employer], 0 [address] 0 [facility], [address]. [place], tel:[phone] [address], [address], [place] tel:[phone] 0001 - [facility] Bipolar Sep- [employer]IEW[employer] S Inc, Primary affective Z KATE. Care disorder, [facility] currently , [place], depressed, Hospitalist [place] mildAdjustment Program [place], [place], disorder with Wing [address], [address], [place] mixed anxiety [place], tel:+160 [place], [address]. [id number] moodAutism tel:[phone] spectrum 622 0001 - [facility] Mood Dec- SHIRA ELY. S Inc, Primary disorderAdjustm [address] Care ent disorder 9 [facility] [place], [address]. [address], anxiety and tel:[phone] [place] depressed [address] [place] [address], moodAutism [address], [place] spectrumPPD tel:+60 screening test [phone] 0001 - [facility] Dysuria Dec-0 YARDE MICHAEL. [employer], Walk-In [address] [place] [address], Street, [address]. [place] tel:[phone] [place], [place], [address], [place] tel:[phone] 0001 - S Adjustment SHRIA ELY. [employer], Primary disorder with [address] Care mixed anxiety 9 [address], [place], [facility] [place], [address]. Street, moodAutism tel:[phone] Clayton spectrumMood [address] [place] [address], disorderWeight [address], [place] loss tel:[phone] 0001 - [facility] PPD screening CALE RENAE. S Inc, Primary test 0-[address], [place], [place], [address]. [place], tel:[phone] Clayton [address] [place] [address], [address], [place] tel:[phone] 0001 - [facility] Procedure and Sep-0 ROSA MARIAKY SOLIS. [facility] Inc, Primary treatment not [address] Care carried out for 9 , [place], [facility] [place], [address]. [place], tel:[phone] Clayton [address] [place] [address], [address], [place] tel:[phone] 0001 - [facility] Sleep Aug- ROSA MARIAKY SOLIS. S Inc, Primary disorderMood 0 [address] Care disorderAdjustm 9 , [place], [facility] [place], [address]. Street, with mixed tel:[phone] Clayton anxiety and [address] [place] [address], depressed [address], [place] moodAutism tel:+60 spectrumBody [id number] mass index (BMI) 45.0-49.9, adultBody mass index (BMI) 39.0-39.9, adult 0001 - [facility] Autism John-0 ROSA MARIAKY SOLIS. S Inc, Primary spectrumAdjustm [address] Care ent disorder 9 St, [place], [facility] [place], [address]. Street, anxiety and tel:[phone] [place] depressed [address] [place] [address], moodMood [address], [place] disorderSleep tel:+60 disorder [phone] 0001 - [facility] General medical Edgar- ROSA MARIAKY SOLIS. [facility] Inc, Primary examAutism [address], [place], [place], [address]. Street, ent disorder tel:[phone] [place] with mixed 323 [place], [place], anxiety [place] [address], [place] depressed tel: moodPPD [phone] screening testMood disorderBody mass index (BMI) 45.0-49.9, adult Family History Family Member Diagnosis Age At Onset Sister ADD/ADHD Immunizations Vaccine Date Status Comments Immunization Unknown Payers Payer name Insurance type Covered constitution party ID Authorization(s) Medicaid Yury [id number] Social History Type Description Quantity Date Captured [...] Instruction Additional Information Doing well today.Moving to halfway Related to Autism spectrum today. Will contact halfway RN today and discuss medication plan. Continue [...]
--- OUTSIDE RECORDS SUMMARY | 2020-01-07 21:27 | XMS REPORT | Continuity of Care Document ---
:1994 Author Organization [address] [place] [address] Address [address] [place] [address] Phone Care Team Providers Name Role Phone ADRIANE DEAN, PAUL Unavailable Unavailable Allergies, Adverse Reactions, Alerts Substance [...] Reference Range Abnormal Flag Status Comments Unknown NOTE: This patient has pending results not included in this document. Encounters Encounter Practice Location Reason(s) Diagnoses Date Provider Providers Description For Visit Copied on Encounter 0001 - Emergency Oct- [employer], PIRET. -[address] [facility], Department, [place], [place], [address]. [address], [place] tel:[phone] tel:[phone] 0001 - S Bipolar Dec-2 PIETRUSZKIEWIC S Inc, Primary affective 201 Z KATE. Care disorder, [facility] currently [facility], depressed, Hospitalist [place] mildAdjustment Program [place], [place], disorder with Wing [address], [address], [place] mixed anxiety [place], tel:+[address] [place], [address]. [id number] moodAutism tel:[phone] spectrum 622 0001 - S Mood Dec- SHIRA ORTEGAN. S Inc, Primary disorderAdjustm [address] Care ent disorder [address] [place] [address] [place], [address] Street, anxiety and tel:[phone] [place] depressed [address] [place] [address], moodAutism [address], [place] spectrumPPD tel:+60 screening test [phone] 0001 - [facility] Dysuria Dec-0 YARDE DAVINIA. [employer] Inc, Walk-In 2 [address] [place], [place], Street, [address]. [place] tel:[phone] [place], [place], [address], [place] tel:[phone] 0001 - S Adjustment Nov- SHIRA ELY. [facility] Inc, Primary disorder with [address] Care mixed anxiety [address], [place], [facility] [place], [address]. Street, moodAutism tel:[phone] Clayton spectrumMood [address] [place] [address], disorderWeight [address], [place] loss tel:[phone] 0001 - [facility] PPD screening CALE RENAE. [facility] Inc, Primary test 0 [address], [place], [place], [address]. Street, tel:[phone] Clayton [address] [place] [address], [address], [place] tel:+ [phone] 0001 - [facility] Procedure and SHIRA ELY. [facility] Inc, Primary treatment not [address] Care carried out for 9 St, [place], [facility] [place], [address]. [place], tel:[phone] Clayton [address] [place] [address], [address], [place] tel:+ [phone] 0001 - [facility] Sleep SHIRA ELY. [facility] Inc, Primary disorderMood 0 [address], [place], [facility] [place], [address]. [place], with mixed tel:[phone] Clayton anxiety and [address] [place] [address], depressed [address], [place] moodAutism tel:+60 spectrumBody [id number] mass index (BMI) 45.0-49.9, adultBody mass index (BMI) 39.0-39.9, adult 0001 - [facility] Autism SHIRA ELY. [facility] Inc, Primary spectrumAdjustm 9 [address] Care ent disorder 9 [address], [place], [facility] [place], [address]. Street, anxiety and tel:[phone] [place] depressed [address] [place] [address], moodMood [address], [place] disorderSleep tel:+60 disorder [phone] 0001 - [facility] General medical SHIRA ELY. S Inc, Primary examAutism 5-[address], [place], [address]. Street, ent disorder tel:[phone] [place] with mixed 323 [place], [place], anxiety [place] [address], [place] depressed tel: moodPPD [phone] screening testMood disorderBody mass index (BMI) 45.0-49.9, adult Family History Family Member Diagnosis Age At Onset Sister ADD/ADHD Immunizations Vaccine Date Status Comments Immunization Unknown Payers Payer name Insurance type Covered republican ID Authorization(s) Medicaid Yury [id number] Social History Type Description Quantity Date Captured [...] Instruction Additional Information Doing well today.[facility] Related to Autism spectrum today. [place] [facility] today and discuss medication plan. Continue [...]
--- OUTSIDE RECORDS SUMMARY | 2020-01-07 21:27 | XMS REPORT | Continuity of Care Document ---
:1994 Author Organization [address] [place] [address] Address [address] [place] [address] Phone Care Team Providers Name Role Phone SOLIS LEIGH Unavailable Unavailable Allergies, Adverse Reactions, Alerts Substance Reaction Status Substance Type Unknown WARNIN allergy(ies) could not be collected because the type is not supported. [facility] for [facility] details. Medications Medication Instructions Dosage [...] on Encounter 0001 - Emergency SHIRA ELY. [employer], 0 [address] 0 [facility], [address]. [place], tel:[phone] [address], [address], [place] tel:[phone] 0001 - [facility] Bipolar Dec-2 PIETRUSZKIEWIC S Inc, Primary affective 201 Z KATE. Care disorder, [facility] currently , [place], depressed, Hospitalist [place] mildAdjustment Program [place], [place], disorder with Wing [address], [address], [place] mixed anxiety [place], tel:+60 [place], [address]. [id number] moodAutism tel:[phone] spectrum 622 0001 - [facility] Mood Dec- SHIRA ELY. S Inc, Primary disorderAdjustm [address] Care ent disorder 9 [facility] [place], [address]. Street, anxiety and tel:[phone] [place] depressed [address] [place] [address], moodAutism [address], [place] spectrumPPD tel:+60 screening test [phone] 0001 - [facility] Dysuria Dec-0 YARDE MICHAEL. [employer], Walk-In [address] [place] [address], Street, [address]. [place] tel:[phone] [place], [place], [address], [place] tel:[phone] 0001 - S Adjustment SHIRA ELY. [employer], Primary disorder with [address] Care mixed anxiety [address], [place], [facility] [place], [address]. Street, moodAutism tel:[phone] [place] spectrumMood [address] [place] [address], disorderWeight [address], [place] loss tel:[phone] 0001 - [facility] PPD screening CALE RENAE. S Inc, Primary test 0-201 [address], [place], [facility] [place], [address]. [place], tel:[phone] Clayton [address] [place] [address], [address], [place] tel:[phone] 0001 - [facility] Procedure and Sep-0 ROSA MARIAKY SOLIS. [facility] Inc, Primary treatment not [address] Care carried out for 9 , [place], [facility] [place], [address]. [place], tel:[phone] Clayton [address] [place] [address], [address], [place] tel:[phone] 0001 - [facility] Sleep Aug- ROSA MARIAKY SOLIS. S Inc, Primary disorderMood 0 [address] Care disorderAdjustm 9 , [place], [facility] [place], [address]. Street, with mixed tel:[phone] [place] anxiety and [address] [place] [address], depressed [address], [place] moodAutism tel:+60 spectrumBody [id number] mass index (BMI) 45.0-49.9, adultBody mass index (BMI) 39.0-39.9, adult 0001 - [facility] Autism John-0 ROSA MARIAKY SOLIS. S Inc, Primary spectrumAdjustm [address] Care ent disorder [address], [place], [facility] [place], [address]. Street, anxiety and tel:[phone] [place] depressed [address] [place] [address], moodMood [address], [place] disorderSleep tel:+60 disorder [phone] 0001 - [facility] General medical Edgar- ROSA MARIAKY SOLIS. [facility] Inc, Primary examAutism [address], [place], [place], [address]. [address], ent disorder tel:[phone] [place] with mixed 323 [place], [place], anxiety and [address], [place] depressed tel: moodPPD [phone] screening testMood disorderBody mass index (BMI) 45.0-49.9, adult Family History Family Member Diagnosis Age At Onset Sister ADD/ADHD Immunizations Vaccine Date Status Comments Immunization Unknown Payers Payer name Insurance type Covered alliance party ID Authorization(s) Medicaid Yury [id number] Social History Type Description Quantity Date Captured [...]
--- OUTSIDE RECORDS SUMMARY | 2020-01-07 21:28 | XMS REPORT | Continuity of Care Document ---
:1994 Author Organization [facility] Address [address] [place] [address] Phone Care Team Providers Name Role Phone [facility], UNKNOWN Unavailable Unavailable Allergies, Adverse Reactions, Alerts Substance Reaction Status Substance Type Unknown WARNIN allergy(ies) could not be collected because the type is not supported. Please contact [facility] for further details. Medications Medication [...] Visit Copied on Encounter 0001 - Emergency [facility], Room - [facility] 57 0 UNKNOWN. . [facility], [place], [address], [place] tel:+ [phone] 2019 - [facility] Bipolar Sep- PIETRUSZKIEWIC [facility], Primary affective Z KATE. Care disorder, 9 [facility], [facility], Hospitalist Clayton mildAdjustment Program [place], [place], disorder with Wing [address], [address], [place] mixed anxiety [place], tel:+60 [place], [address]. [id number] moodAutism tel:[phone] spectrum 622 0001 - [facility] Mood Dec- SHIRA ORTEGAN. [facility], Primary disorderAdjustm [address] Care ent disorder [address] [place] [address] [place], [address]. [place], anxiety and tel:[phone] Clayton depressed [address] [place] [address], moodAutism [address], [place] spectrumPPD tel:+60 screening test [phone] 0001 - [facility] Dysuria Dec-0 YARDE DAVINIA. [facility] Inc, Walk-In 2 [address] Center [address] [place], [place], Street, [address]. [place] tel:[phone] [place], [place], [address], [place] tel:[phone] 0001 - [facility] Adjustment Nov- SHIRA ORTEGAN. S Inc, Primary disorder with [address] Care mixed anxiety 9 [facility] [place], [address], moodAutism tel:[phone] Clayton spectrumMood [address] [place] [address], disorderWeight [address], [place] loss tel:+ [phone] 0001 - [facility] PPD screening CALE RENAE. [facility] Inc, Primary test 0 [address] Care 9 , [place], [place], [address]. Street, tel:[phone] Clayton [address] [place] [address], [address], [place] tel:+ [phone] 0001 - [facility] Procedure and Sep-0 ROSA MARIAKY SOLIS. [facility] Inc, Primary treatment not [address] Care carried out for 9 , [place], [place], [address]. Street, tel:[phone] Clayton [address] [place] [address], [address], [place] tel:+ [phone] 0001 - [facility] Sleep Aug- SHIRA SOLIS. [facility] Inc, Primary disorderMood 0 [address] Care disorderAdjustm 9 [facility], [place], [address]. Street, with mixed tel:[phone] Clayton anxiety and [address] [place] [address], depressed [address], [place] moodAutism tel:+60 spectrumBody [phone] mass index (BMI) 45.0-49.9, adultBody mass index (BMI) 39.0-39.9, adult 0001 - [facility] Autism John-0 ROSA MARIAKY SOLIS. [facility] Inc, Primary spectrumAdjustm [address] Care ent disorder 9 [facility], [place], [address], anxiety and tel:[phone] Clayton depressed [address] [place] [address], moodMood [address], [place] disorderSleep tel:+60 disorder [phone] 0001 - [facility] General medical Edgar- ROSA MARIAKY SOLIS. [facility] Inc, Primary examAutism [address] Care spectrumSleep 9 , [place], [place], [address], ent disorder tel:[phone] Clayton with mixed [address] [place], [place], anxiety [place] [address], [place] depressed tel:+ moodPPD [phone] screening testMood disorderBody mass index (BMI) 45.0-49.9, adult Family History Family Member Diagnosis Age At Onset Sister ADD/ADHD Immunizations Vaccine Date Status Comments Immunization Unknown Payers Payer name Insurance type Covered republican ID Authorization(s) Medicaid Yury [id number] Social History Type Description Quantity Date Captured [...] Instruction Additional Information Doing well today.Moving to longterm Related to Autism spectrum today. Will contact longterm RN today and discuss medication plan. Continue [...]
--- OUTSIDE RECORDS SUMMARY | 2020-01-07 21:28 | XMS REPORT | Continuity of Care Document ---
:1994 Author Organization [address] [place] [address] Address [address] [place] [address] Phone Care Team Providers Name Role Phone SOLIS LEIGH Unavailable Unavailable Allergies, Adverse Reactions, Alerts Substance Reaction Status Substance Type Unknown WARNIN allergy(ies) could not be collected because the type is not supported. Please contact [facility] for further details. Medications Medication Instructions [...] on Encounter 0001 - Emergency SHIRA ELY. [employer], [address] 0 [facility], [address]. [place], tel:[phone] [address], [address], [place] tel:[phone] 0001 - [facility] Bipolar Sep- PIETRUSZKIEWIC [facility] Inc, Primary affective Z KATE. Care disorder, [facility] currently , [place], depressed, Hospitalist Clayton mildAdjustment Program [place], [place], disorder with Wing [address], [address], [place] mixed anxiety [place], tel:+60 [place], [address]. [id number] moodAutism tel:[phone] spectrum 622 0001 - [facility] Mood Sep- SHIRA ELY. S Inc, Primary disorderAdjustm [address] Care ent disorder [facility] [place], [address], anxiety and tel:[phone] Clayton depressed [address] [place] [address], moodAutism [address], [place] spectrumPPD tel:+60 screening test [phone] 0001 - [facility] Dysuria Dec-0 YARDE MICHAEL. [employer], Walk-In 7 [place] [address] [place] [address], Street, [address]. [place] tel:[phone] [place], [place], [address], [place] tel:[phone] 0001 - S Adjustment SHIRA ELY. [employer], Primary disorder with [address] Care mixed anxiety 9 , [place], [facility] [place], [address]. Street, moodAutism tel:[phone] Clayton spectrumMood [address] [place] [address], disorderWeight [address], [place] loss tel:[phone] 0001 - [facility] PPD screening CALE RENAE. S Inc, Primary test 0-[address], [place], [place], [address]. [place], tel:[phone] Clayton [address] [place] [address], [address], [place] tel:[phone] 0001 - [facility] Procedure and Sep-0 ROSA MARIAKY SOLIS. [facility] Inc, Primary treatment not [address] Care carried out for 9 , [place], [facility] [place], [address]. [place], tel:[phone] Clayton [address] [place] [address], [address], [place] tel:[phone] 0001 - [facility] Sleep Aug- ROSA MARIAKY SOLIS. S Inc, Primary disorderMood 0 [address] Care disorderAdjustm 9 , [place], [facility] [place], [address]. Street, with mixed tel:[phone] Clayton anxiety and [address] [place] [address], depressed [address], [place] moodAutism tel:+60 spectrumBody [id number] mass index (BMI) 45.0-49.9, adultBody mass index (BMI) 39.0-39.9, adult 0001 - [facility] Autism John-0 ROSA MARIAKY SOLIS. S Inc, Primary spectrumAdjustm [address] Care ent disorder 9 [address], [place], [facility] [place], [address]. Street, anxiety and tel:[phone] Clayton depressed [address] [place] [address], moodMood [address], [place] disorderSleep tel:+60 disorder [phone] 0001 - [facility] General medical Edgar- ROSA MARIAKY SOLIS. [facility] Inc, Primary examAutism [address], [place], [place], [address]. [address], ent disorder tel:[phone] Clayton with mixed [address] [place], [place], anxiety [place] [address], [place] depressed tel: moodPPD [phone] screening testMood disorderBody mass index (BMI) 45.0-49.9, adult Family History Family Member Diagnosis Age At Onset Sister ADD/ADHD Immunizations Vaccine Date Status Comments Immunization Unknown Payers Payer name Insurance type Covered democrat ID Authorization(s) Medicaid Yury [id number] Social History Type Description Quantity Date Captured [...] month See above Related to Mood disorder Please call with what meds you are Related to Mood disorder taking.Follow up with [facility] for medication management.2 month follow up See above Related to Adjustment disorder with mixed anxiety and depressed mood You state that snoring has not been a Related to Sleep disorder concernEncourage weight lossConsider sleep center in future See above Related to Autism spectrum Encourage being as active as possible. Related to Body mass index (BMI) 45.0-49.9, adult Last visit we referred you to sleep Related to Sleep disorder center. See above Related to Adjustment disorder with mixed anxiety and depressed mood See above Related to Autism spectrum Last visit restarted medication.We Related to Mood [...]
--- OUTSIDE RECORDS SUMMARY | 2020-01-07 21:28 | XMS REPORT | Continuity of Care Document ---
:1994 Author Organization [facility] Address [address] [place] [address] Phone Care Team Providers Name Role Phone [facility], UNKNOWN Unavailable Unavailable Allergies, Adverse Reactions, Alerts Substance Reaction Status Substance Type Unknown WARNIN allergy(ies) could not be collected because the type is not supported. Please contact [facility] for further details. Medications Medication Instructions [...] Visit Copied on Encounter 0001 - Emergency [facility], Room - [facility] 57 0 UNKNOWN. . [facility], [place], [address], [place] tel:+ [phone] 0001 - [facility] Bipolar Dec- PIETRUSZKIEWIC [facility], Primary affective Z KATE. Care disorder, 9 [facility], [facility], Hospitalist Clayton mildAdjustment Program [place], [place], disorder with Wing [address], [address], [place] mixed anxiety [place], tel:+60 [place], [address]. [id number] moodAutism tel:[phone] spectrum 622 0001 - [facility] Mood Dec- SHIRA ORTEGAN. [facility], Primary disorderAdjustm [address] Care ent disorder [address] [place] [address] [place], [address]. [place], anxiety and tel:[phone] Clayton depressed [address] [place] [address], moodAutism [address], [place] spectrumPPD tel:+60 screening test [phone] 0001 - [facility] Dysuria Dec-0 YARDE DAVINIA. [facility] Inc, Walk-In [address] Center 9 [place], [place], Street, [address]. [place] tel:[phone] [place], [place], [address], [place] tel:[phone] 0001 - [facility] Adjustment Nov- SHIRA ORTEGAN. [facility] Inc, Primary disorder with [address] Care mixed anxiety 9 [facility] [place], [address]. Street, moodAutism tel:[phone] Clayton spectrumMood [address] [place] [address], disorderWeight [address], [place] loss tel:+ [phone] 0001 - [facility] PPD screening CALE RENAE. [facility] Inc, Primary test 0 [address] Care 9 , [place], [facility] [place], [address]. [address], tel:[phone] Clayton [address] [place] [address], [address], [place] tel:+ [phone] 0001 - [facility] Procedure and Sep-0 ROSA MARIAKY SOLIS. [facility] Inc, Primary treatment not [address] Care carried out for 9 , [place], [facility] [place], [address]. Street, tel:[phone] Clayton [address] [place] [address], [address], [place] tel:+ [phone] 0001 - [facility] Sleep Aug- SHIRA SOLIS. [facility] Inc, Primary disorderMood 0 [address] Care disorderAdjustm 9 [facility], [facility] [place], [address]. Street, with mixed tel:[phone] Clayton anxiety and [address] [place] [address], depressed [address], [place] moodAutism tel:+60 spectrumBody [id number] mass index (BMI) 45.0-49.9, adultBody mass index (BMI) 39.0-39.9, adult 0001 - [facility] Autism John-0 ROSA MARIAKY SOLIS. [facility] Inc, Primary spectrumAdjustm [address] Care ent disorder 9 [facility], [facility] [place], [address]. Street, anxiety and tel:[phone] Clayton depressed [address] [place] [address], moodMood [address], [place] disorderSleep tel:+60 disorder [phone] 0001 - [facility] General medical Edgar- ROSA MARIAKY SOLIS. [facility] Inc, Primary examAutism [address] Care spectrumSleep 9 , [place], [facility] [place], [address], ent disorder tel:[phone] Clayton with mixed [address] [place], [place], anxiety [place] [address], [place] depressed tel:+ moodPPD [phone] screening testMood disorderBody mass index (BMI) 45.0-49.9, adult Family History Family Member Diagnosis Age At Onset Sister ADD/ADHD Immunizations Vaccine Date Status Comments Immunization Unknown Payers Payer name Insurance type Covered alliance party ID Authorization(s) Medicaid Yury [id number] Social History Type Description Quantity Date Captured [...]
--- OUTSIDE RECORDS SUMMARY | 2020-01-07 21:28 | XMS REPORT | Continuity of Care Document ---
:1994 Author Organization [facility] Address [address] [place] [address] Phone Care Team Providers Name Role Phone [facility], UNKNOWN Unavailable Unavailable Allergies, Adverse Reactions, Alerts Substance Reaction Status Substance Type Unknown WARNIN allergy(ies) could not be collected because the type is not supported. Please contact [facility] for further details. Medications Medication Instructions [...] Encounter 0001 - Emergency [facility], Room - [facility] [address] [facility], [place], [address], [place] tel:+ [phone] 0001 - [facility] Bipolar Sep- PIETRUSZKIEWIC [facility], Primary affective Z KATE. Care disorder, 9 [facility], [facility], Hospitalist Clayton mildAdjustment Program [place], [place], disorder with Wing [address], [address], [place] mixed anxiety [place], tel:+60 [place], [address]. [id number] moodAutism tel:[phone] spectrum 622 0001 - [facility] Mood Dec- SHIRA ORTEGAN. [facility], Primary disorderAdjustm [address] Care ent disorder 9 [facility] [place], [address]. [place], anxiety and tel:[phone] Clayton depressed [address] [place] [address], moodAutism [address], [place] spectrumPPD tel:+60 screening test [phone] 0001 - [facility] Dysuria Dec-0 YARDE DAVINIA. [facility] Inc, Walk-In [address] 9 [place], [place], Street, [address]. [place] tel:[phone] [place], [place], [address], [place] tel:[phone] 0001 - [facility] Adjustment Nov- SHIRA ORTEGAN. S Inc, Primary disorder with [address] Care mixed anxiety 9 [facility] [place], [address]. Street, moodAutism tel:[phone] Clayton spectrumMood [address] [place] [address], disorderWeight [address], [place] loss tel:+ [phone] 0001 - [facility] PPD screening CALE RENAE. [facility] Inc, Primary test 0 [address] Care 9 , [place], [facility] [place], [address]. Street, tel:+[phone] Clayton [address] [place] [address], [address], [place] tel:+ [phone] 0001 - [facility] Procedure and Sep-0 ROSA MARIAKY SOLIS. [facility] Inc, Primary treatment not [address] Care carried out for 9 , [place], [facility] [place] [place], [address]. Street, tel:[phone] Clayton [address] [place] [address], [address], [place] tel:+ [phone] 0001 - [facility] Sleep Aug- SHIRA SOLIS. [facility] Inc, Primary disorderMood 0 [address] Care disorderAdjustm 9 [facility], [facility] [place], [address]. Street, with mixed tel:[phone] Clayton anxiety and [address] [place] [address], depressed [address], [place] moodAutism tel:+60 spectrumBody [phone] mass index (BMI) 45.0-49.9, adultBody mass index (BMI) 39.0-39.9, adult 0001 - [facility] Autism John-0 ROSA MARIAKY SOLIS. [facility] Inc, Primary spectrumAdjustm [address] Care ent disorder 9 [facility], [facility] [place] [place], [address]. Street, anxiety and tel:[phone] Clayton depressed [address] [place] [address], moodMood [address], [place] disorderSleep tel:+60 disorder [phone] 0001 - [facility] General medical Edgar- ROSA MARIAKY SOLIS. [facility] Inc, Primary examAutism [address] Care spectrumSleep 9 , [place], [facility] [place], [address]. Street, ent disorder tel:[phone] Clayton with mixed [address] [place], [place], anxiety and [address], [place] depressed tel:+ moodPPD [phone] screening testMood disorderBody mass index (BMI) 45.0-49.9, adult Family History Family Member Diagnosis Age At Onset Sister ADD/ADHD Immunizations Vaccine Date Status Comments Immunization Unknown Payers Payer name Insurance type Covered alliance party ID Authorization(s) Medicaid Yury [id number] Social History Type Description Quantity Date Captured [...] Instruction Additional Information Doing well today.Moving to long-term Related to Autism spectrum today. Will contact long-term RN today and discuss medication plan. Medications [...] reviewed and no signs of malnourishment Continue current medications. You are Related to Adjustment disorder taking Depakote and xanax at bedtime. with mixed anxiety and depressed Risks and benefits of new medication mood discussed.You have not been taking Seroquel or Risperdal.Restart Seroquel at bedtimeFollow up one month Continue with counseling with Ludwin vela Related to Autism spectrum article 12 See above Related to Mood disorder You [...] mood See above Related to Autism spectrum Encourage [...] with psych.Important to get fasting lab work Last visit we referred you to sleep Related to Sleep disorder center. See above Related to Adjustment disorder with mixed anxiety and depressed mood See above Related to Mood disorder One [...] to Sleep disorder workup for sleep apnea. Recommend following with psychProvided Related to Autism spectrum you resources of local groups in the area. Yearly eye exams.Dental exams twice a Related [...]
--- OUTSIDE RECORDS SUMMARY | 2020-01-07 21:28 | XMS REPORT | Continuity of Care Document ---
:1994 Author Organization [address] [place] [address] Address [address] [place] [address] Phone Care Team Providers Name Role Phone SOLIS LEIGH Unavailable Unavailable Allergies, Adverse Reactions, Alerts Substance Reaction Status Substance Type Unknown WARNIN allergy(ies) could not be collected because the type is not supported. Please contact [facility] for further details. Medications Medication [...] on Encounter 0001 - S SHIRA ELY. [employer], Primary [address] Care 0 , [facility], [address]. [address], tel:[phone] [address], [address], [place] tel:[phone] 0001 - S Bipolar Sep- PIETRUSZKIEWIC S Inc, Primary affective Z KATE. Care disorder, [facility] currently , [place], depressed, Hospitalist Clayton mildAdjustment Program [place], [place], disorder with Wing [address], [address], [place] mixed anxiety [place], tel:+[phone] [place], [address]. [id number] moodAutism tel:[phone] spectrum 622 0001 - S Mood Sep- SHIRA ELY. [facility] Inc, Primary disorderAdjustme [address] Care nt disorder with 9 , [facility] [place] [place], [address]. Street, and depressed tel:[phone] Clayton [address], spectrumPPD [address], [place] screening test tel:[phone] 0001 - S Dysuria Dec-0 YARDE DAVINIA. [employer], Walk-In 7 [place] [address], Street, [address]. [place] tel:[phone] [place], [place], [address], [place] tel:[phone] 0001 - S Adjustment SHIRA ELY. [employer], Primary disorder with [address] Care mixed anxiety [address], [place], [place], [address]. Street, moodAutism tel:[phone] Clayton spectrumMood [address] [place] [address], disorderWeight [address], [place] loss tel:[phone] 0001 - [facility] PPD screening CALE RENAE. [facility] Inc, Primary test 0 [address], [place], [place], [address]. Street, tel:[phone] Clayton [address] [place] [address], [address], [place] tel:[phone] 0001 - [facility] Procedure and Sep-0 SHIRA ORTEGAN. [facility] Inc, Primary treatment not [address] Care carried out for 9 St, [place], [facility] [place], [address]. [place], tel:[phone] [address], [address], [place] tel:[phone] 0001 - [facility] Sleep Aug- SHIRA ORTEGAN. [facility] Inc, Primary disorderMood 0 [address], [place], [facility] [place], [address]. Street, mixed anxiety tel:[phone] Clayton and depressed [address] [place] [address], moodAutism [address], [place] spectrumBody tel:+60 mass index (BMI) [id number] 45.0-49.9, adultBody mass index (BMI) 39.0-39.9, adult 0001 - [facility] Autism John-0 SHIRA SOLIS. S Inc, Primary spectrumAdjustme [address] Care nt disorder with 9 St, [place], [place], [address]. Street, and depressed tel:[phone] Clayton moodMood [address] [place] [address], disorderSleep [address], [place] disorder tel:[phone] 0001 - [facility] General medical Edgar- SHIRA SOLIS. [facility] Inc, Primary examAutism [address], [place], [facility] [place], [address]. [address], nt disorder with [phone] Clayton mixed anxiety [address] [place] [address], and depressed [address], [place] moodPPD tel: screening [phone] testMood disorderBody mass index (BMI) 45.0-49.9, adult Family History Family Member Diagnosis Age At Onset Sister ADD/ADHD Immunizations Vaccine Date Status Comments Immunization Unknown Payers Payer name Insurance type Covered constitution party ID Authorization(s) Medicaid Yury [id number] Social History Type Description Quantity Date Captured [...]
--- OUTSIDE RECORDS SUMMARY | 2020-01-07 21:28 | XMS REPORT | Continuity of Care Document ---
:1995 Author Organization [address] [place] [address] Address [address] [place] [address] Phone Care Team Providers Name Role Phone SOLIS LEIGH Unavailable Unavailable Allergies, Adverse Reactions, Alerts Substance Reaction Status Substance Type Unknown WARNIN allergy(ies) could not be collected because the type is not supported. Please contact [facility] for further details. Medications Medication Instructions [...] on Encounter 0001 - Emergency SHIRA ELY. [employer], [address] 0 [facility], [address]. [place], tel:[phone] [address], [address], [place] tel:[phone] 0001 - [facility] Bipolar Sep- PIETRUSZKIEWIC [facility] Inc, Primary affective Z KATE. Care disorder, [facility] currently , [place], depressed, Hospitalist [place] mildAdjustment Program [place], [place], disorder with Wing [address], [address], [place] mixed anxiety [place], tel:+60 [place], [address]. [id number] moodAutism tel:[phone] spectrum [phone] - [facility] Mood Sep- SHIRA ELY. S Inc, Primary disorderAdjustm [address] Care ent disorder [facility] [place], [address]. Street, anxiety and tel:[phone] [place] depressed [address] [place] [address], moodAutism [address], [place] spectrumPPD tel:+60 screening test [phone] 0001 - [facility] Dysuria Dec-0 YARDE MICHAEL. [employer], Walk-In [address] [place] [address] [place] [address], Street, [address]. [place] tel:[phone] [place], [place], [address], [place] tel:[phone] 0001 - S Adjustment SHIRA ELY. [employer], Primary disorder with [address] Care mixed anxiety 9 , [place], [facility] [place], [address]. Street, moodAutism tel:[phone] [place] spectrumMood [address] [place] [address], disorderWeight [address], [place] loss tel:[phone] 0001 - [facility] PPD screening CALE RENAE. S Inc, Primary test 0-[address], [place], [place], [address]. [place], tel:[phone] [place] [address] [place] [address], [address], [place] tel:[phone] 0001 - [facility] Procedure and Sep-0 ROSA MARIAKY SOLIS. [facility] Inc, Primary treatment not [address] Care carried out for 9 , [place], [facility] [place], [address]. [place], tel:[phone] [place] [address] [place] [address], [address], [place] tel:[phone] 0001 - [facility] Sleep Aug- ROSA MARIAKY SOLIS. S Inc, Primary disorderMood 0 [address] Care disorderAdjustm 9 , [place], [facility] [place], [address]. Street, with mixed tel:[phone] Clayton anxiety and [address] [place] [address], depressed [address], [place] moodAutism tel:+60 spectrumBody [id number] mass index (BMI) 45.0-49.9, adultBody mass index (BMI) 39.0-39.9, adult 0001 - [facility] Autism John-0 ROSA MARIAKY SOLIS. S Inc, Primary spectrumAdjustm [address] Care ent disorder [address], [place], [facility] [place], [address]. Street, anxiety and tel:[phone] [place] depressed [address] [place] [address], moodMood [address], [place] disorderSleep tel:+60 disorder [phone] 0001 - [facility] General medical Edgar- ROSA MARIAKY SOLIS. [facility] Inc, Primary examAutism [address], [place], [place], [address]. Street, ent disorder tel:[phone] [place] with mixed 323 [place], anxiety [place] [address], [place] depressed tel: moodPPD [phone] screening testMood disorderBody mass index (BMI) 45.0-49.9, adult Family History Family Member Diagnosis Age At Onset Sister ADD/ADHD Immunizations Vaccine Date Status Comments Immunization Unknown Payers Payer name Insurance type Covered democrat ID Authorization(s) Medicaid Yury [id number] Social History Type Description Quantity Date Captured [...] Instruction Additional Information Doing well today.Moving to shelter Related to Autism spectrum today. Will contact shelter RN today and discuss medication plan. Continue [...]
--- OUTSIDE RECORDS SUMMARY | 2020-01-07 21:28 | XMS REPORT | Continuity of Care Document ---
:1995 Author Organization [address] [place] [address] Address [address] [place] [address] Phone Care Team Providers Name Role Phone SOLIS LEIGH Unavailable Unavailable Allergies, Adverse Reactions, Alerts Substance Reaction Status Substance Type Unknown WARNIN allergy(ies) could not be collected because the type is not supported. Please contact [facility] for further details. Medications Medication Instructions Dosage [...] on Encounter 0001 - Emergency SHIRA ELY. [employer], [address] [facility], [address]. [place], tel:[phone] [address], [address], [place] tel:[phone] 0001 - [facility] Bipolar Sep- PIETRUSZKIEWIC [facility] Inc, Primary affective Z KATE. Care disorder, [facility] currently , [place], depressed, Hospitalist [place] mildAdjustment Program [place], [place], disorder with Wing [address], [address], [place] mixed anxiety [place], tel:[phone] [place], [address]. [id number] moodAutism tel:[phone] spectrum 622 0001 - [facility] Mood Sep- SHIRA ELY. [employer] Inc, Primary disorderAdjustm [address] Care ent disorder [facility] [place], [address]. Street, anxiety and tel:[phone] [place] depressed [address] [place] [address], moodAutism [address], [place] spectrumPPD tel:+60 screening test [phone] 0001 - [facility] Dysuria Dec-0 YARDE MICHAEL. [employer], Walk-In 7 [place] [address] [place] [address], Street, [address]. [place] tel:[phone] [place], [place], [address], [place] tel:[phone] 0001 - S Adjustment SHIRA ELY. [employer], Primary disorder with [address] Care mixed anxiety 9 , [place], [facility] [place], [address]. Street, moodAutism tel:[phone] [place] spectrumMood [address] [place] [address], disorderWeight [address], [place] loss tel:[phone] 0001 - [facility] PPD screening CALE RE[employer]. S Inc, Primary test 0-[address], [place], [place], [address]. [place], tel:[phone] [place] [address] [place] [address], [address], [place] tel:[phone] 0001 - [facility] Procedure and Sep-0 ROSA MARIAKY SOLIS. [facility] Inc, Primary treatment not [address] Care carried out for 9 , [place], [facility] [place], [address]. [place], tel:[phone] Clayton [address] [place] [address], [address], [place] tel:[phone] 0001 - [facility] Sleep Aug- ROSA MARIAKY SOLIS. S Inc, Primary disorderMood 0 [address] Care disorderAdjustm 9 , [place], [facility] [place], [address]. Street, with mixed tel:[phone] Clayton anxiety and [address] [place] [address], depressed [address], [place] moodAutism tel:+60 spectrumBody [id number] mass index (BMI) 45.0-49.9, adultBody mass index (BMI) 39.0-39.9, adult 0001 - [facility] Autism John-0 ROSA MARIAKY SOLIS. S Inc, Primary spectrumAdjustm [address] Care ent disorder [address], [place], [facility] [place] [place], [address]. Street, anxiety and tel:[phone] [place] depressed [address] [place] [address], moodMood [address], [place] disorderSleep tel:+60 disorder [phone] 0001 - [facility] General medical Edgar- ROSA MARIAKY SOLIS. [facility] Inc, Primary examAutism [address], [place], [place], [address]. Street, ent disorder tel:[phone] [place] with mixed 323 [place], [place], anxiety [place] [address], [place] depressed tel: moodPPD [phone] screening testMood disorderBody mass index (BMI) 45.0-49.9, adult Family History Family Member Diagnosis Age At Onset Sister ADD/ADHD Immunizations Vaccine Date Status Comments Immunization Unknown Payers Payer name Insurance type Covered republican ID Authorization(s) Medicaid Yury [id number] Social History Type Description Quantity Date Captured [...] Instruction Additional Information Doing well today.Moving to half-way Related to Autism spectrum today. Will contact half-way RN today and discuss medication plan. Continue [...]
--- OUTSIDE RECORDS SUMMARY | 2020-01-07 21:28 | XMS REPORT | Continuity of Care Document ---
:1995 Author Organization [facility] Address [address] [place] [address] Phone Care Team Providers Name Role Phone [facility], UNKNOWN Unavailable Unavailable Allergies, Adverse Reactions, Alerts Substance Reaction Status Substance Type Unknown WARNIN allergy(ies) could not be collected because the type is not supported. Please contact [facility] for further details. Medications Medication Instructions [...] Visit Copied on Encounter 0001 - Emergency [facility], Room - [facility] 57 0 UNKNOWN. . [facility], [place], [address], [place] tel:+ [phone] 0001 - [facility] Bipolar Dec- PIETRUSZKIEWIC [facility], Primary affective Z KATE. Care disorder, 9 [facility], [facility], Hospitalist Clayton mildAdjustment Program [place], [place], disorder with Wing [address], [address], [place] mixed anxiety [place], tel:+60 [place], [address]. [phone] moodAutism tel:[phone] spectrum [phone] - [facility] Mood Dec- SHIRA ORTEGAN. [facility], Primary disorderAdjustm [address] Care ent disorder [address] [place] [address] [place], [address]. [place], anxiety and tel:[phone] [place] depressed [address] [place] [address], moodAutism [address], [place] spectrumPPD tel:+60 screening test [phone] 0001 - [facility] Dysuria Dec-0 YARDE DAVINIA. [facility] Inc, Walk-In [address] Center 9 [place], [place], Street, [address]. [place] tel:[phone] [place], [place], [address], [place] tel:[phone] 0001 - [facility] Adjustment Nov- SHIRA ORTEGAN. [facility] Inc, Primary disorder with [address] Care mixed anxiety [address] [facility], [address]. Street, moodAutism tel:[phone] Clayton spectrumMood [address] [place] [address], disorderWeight [address], [place] loss tel:+ [phone] 0001 - [facility] PPD screening CALE RENAE. [facility] Inc, Primary test 0 [address] Care 9 , [place], [facility] [place], [address]. Street, tel:[phone] [place] [address] [place] [address], [address], [place] tel:+ [phone] 0001 - [facility] Procedure and Sep-0 ROSA MARIAKY SOLIS. [facility] Inc, Primary treatment not [address] Care carried out for 9 , [place], [facility] [place], [address]. Street, tel:[phone] [place] [address] [place] [address], [address], [place] tel:+ [phone] 0001 - [facility] Sleep Aug- SHIRA SOLIS. [facility] Inc, Primary disorderMood 0 [address] Care disorderAdjustm 9 [facility], [facility] [place], [address]. Street, with mixed tel:[phone] Clayton anxiety and [address] [place] [address], depressed [address], [place] moodAutism tel:+60 spectrumBody [phone] mass index (BMI) 45.0-49.9, adultBody mass index (BMI) 39.0-39.9, adult 0001 - [facility] Autism John-0 ROSA MARIAKY SOLIS. [facility] Inc, Primary spectrumAdjustm [address] Care ent disorder 9 [facility], [facility] [place], [address]. Street, anxiety and tel:[phone] [place] depressed [address] [place] [address], moodMood [address], [place] disorderSleep tel:+60 disorder [phone] 0001 - [facility] General medical Edgar- ROSA MARIAKY SOLIS. [facility] Inc, Primary examAutism [address] Care spectrumSleep 9 , [place], [facility] [place], [address]. Street, ent disorder tel:[phone] [place] with mixed [address] [place], [place], anxiety [place] [address], [place] depressed tel:+ moodPPD [phone] screening testMood disorderBody mass index (BMI) 45.0-49.9, adult Family History Family Member Diagnosis Age At Onset Sister ADD/ADHD Immunizations Vaccine Date Status Comments Immunization Unknown Payers Payer name Insurance type Covered democrat ID Authorization(s) Medicaid Yury [id number] Social History Type Description Quantity Date Captured [...] Instruction Additional Information Doing well today.Moving to jail Related to Autism spectrum today. Will contact jail RN today and discuss medication plan. Continue [...]
--- OUTSIDE RECORDS SUMMARY | 2020-01-07 21:28 | XMS REPORT | Continuity of Care Document ---
:1994 Author Organization [facility] Address [address] [place] [address] Phone Care Team Providers Name Role Phone [facility], UNKNOWN Unavailable Unavailable Allergies, Adverse Reactions, Alerts Substance Reaction Status Substance Type Unknown WARNIN allergy(ies) could not be collected because the type is not supported. Please contact [facility] for further details. Medications Medication Instructions Dosage [...] Visit Copied on Encounter 0001 - Emergency [facility], Room - [facility] 57 0 UNKNOWN. . [facility], [place], [address], [place] tel:+ [phone] 0001 - [facility] Bipolar Sep- PIETRUSZKIEWIC [facility], Primary affective Z KATE. Care disorder, [facility], [facility], Hospitalist [place] mildAdjustment Program [place], [place], disorder with Wing [address], [address], [place] mixed anxiety [place], tel:+60 [place], [address]. [id number] moodAutism tel:[phone] spectrum 622 0001 - [facility] Mood Dec- SHIRA ORTEGAN. [facility], Primary disorderAdjustm [address] Care ent disorder [address] [place] [address] [place], [address]. [place], anxiety and tel:[phone] Clayton [address], moodAutism [address], [place] spectrumPPD tel:+60 screening test [phone] 0001 - [facility] Dysuria Dec-[address] [facility] Inc, Walk-In [address] 9 [place], [place], Street, [address]. [place] tel:[phone] [place], [place], [address], [place] tel:[phone] 0001 - [facility] Adjustment Nov- SHIRA ORTEGAN. [facility] Inc, Primary disorder with [address] Care mixed anxiety 9 [facility] [place], [address]. Street, moodAutism tel:[phone] Clayton spectrumMood [address] [place] [address], disorderWeight [address], [place] loss tel:+ [phone] 0001 - [facility] PPD screening CALE RENAE. [facility] Inc, Primary test 0 [address] Care 9 , [place], [facility] [place], [address]. Street, tel:+[phone] Clayton [address] [place] [address], [address], [place] tel:+ [phone] 0001 - [facility] Procedure and Sep-0 ROSA MARIAKY SOLIS. [facility] Inc, Primary treatment not [address] Care carried out for 9 , [place], [facility] [place], [address]. Street, tel:+[phone] Clayton [address] [place] [address], [address], [place] tel:+ [phone] 0001 - [facility] Sleep Aug- SHIRA SOLIS. [facility] Inc, Primary disorderMood 0 [address] Care disorderAdjustm 9 [facility], [facility] [place], [address]. Street, with mixed tel:[phone] Clayton anxiety and [address] [place] [address], depressed [address], [place] moodAutism tel:+60 spectrumBody [id number] mass index (BMI) 45.0-49.9, adultBody mass index (BMI) 39.0-39.9, adult 0001 - [facility] Autism John-0 ROSA MARIAKY SOLIS. [facility] Inc, Primary spectrumAdjustm [address] Care ent disorder 9 [facility], [facility] [place], [address]. Street, anxiety and tel:[phone] [place] depressed [address] [place] [address], moodMood [address], [place] disorderSleep tel:+60 disorder [phone] 0001 - [facility] General medical Edgar- ROSA MARIAKY SOLIS. [facility] Inc, Primary examAutism [address] Care spectrumSleep 9 , [place], [facility] [place] [place], [address]. Street, ent disorder tel:+[phone] [place] with mixed [address] [place], [place], anxiety [place] [address], [place] depressed tel:+ moodPPD [phone] screening testMood disorderBody mass index (BMI) 45.0-49.9, adult Family History Family Member Diagnosis Age At Onset Sister ADD/ADHD Immunizations Vaccine Date Status Comments Immunization Unknown Payers Payer name Insurance type Covered republican ID Authorization(s) Medicaid Yury [id number] Social History Type Description Quantity Date Captured [...] Instruction Additional Information Doing well today.[facility] to [facility] Related to Autism spectrum today. Will contact [facility] RN today and discuss medication plan. Continue [...]
[2020-01-07 21:45] LABS: ABS Eosinophils 0.1 10^3/ul (0-0.6); ABS Monocytes 0.4 10^3/ul (0-0.8); ABS Neutrophils 4.3 10^3/ul (1.5-7.7); Eosinophil % 1.3 %; Hematocrit 46 % (42-52); Hemoglobin 16.1 g/dL (14.0-18.0); Lymphocyte % 38.1 %; Mean Corpuscular HGB Conc 35 g/dL (31-36); Mean Corpuscular Hemoglobin 31 pg (27-31); Mean Corpuscular Volume 89 fL (80-94); Mean Platelet Volume 9.4 fL (7.4-10.4); Nucleated Red Blood Cells % 0.1; Platelet Count 159 10^3/uL (150-450); Red Blood Count 5.16 10^6 /uL (4.18-5.48); Red Cell Distribution Width 13 % (10-15); White Blood Count 7.9 10^3/uL (3.5-10.8)
[2020-01-07 22:01] LABS: ALT 12 U/L (7-52); AST 22 U/L (13-39); Albumin 4.4 g/dL (3.2-5.2); Albumin/Globulin Ratio 1.8 (1-3); Alkaline Phosphatase 59 U/L (34-104); Anion Gap 5 mmol/L (2-11); BUN/Creatinine Ratio 17.6 (8-20); Blood Urea Nitrogen 19 mg/dL (6-24); CO2 Carbon Dioxide 27 mmol/L (22-32); Calcium 9.6 mg/dL (8.6-10.3); Chloride 107 mmol/L (101-111); EGFR African American 100.8 (>60); EGFR Non-African American 83.3 (>60); Globulin 2.5 g/dL (2-4); Glucose 111 mg/dL (70-100); Sodium 139 mmol/L (135-145); Total Protein 6.9 g/dL (6.4-8.9)
[2020-01-07 22:23] LABS: Urine Appearance Clear; Urine Bilirubin Negative (Negative); Urine Blood Negative (Negative); Urine Color Yellow; Urine Glucose Negative (Negative); Urine Ketones Negative (Negative); Urine Nitrite Negative (Negative); Urine Protein Negative (Negative); Urine Specific Gravity 1.029 (1.010-1.030); Urine Urobilinogen Negative (Negative)
[2020-01-07 22:32] LABS: Acetaminophen < 15 mcg/mL; Alcohol < 10 mg/dL (<10); Salicylate < 2.50 mg/dL (<30)
[2020-01-07 22:37] LABS: Urine Benzodiazepine Screen Presumptive Positive (None Detect); Urine Opiates Screen None Detected (None Detect)
[2020-01-07 22:46] LABS: TSH (Thyroid Stimulating Horm) 1.01 mcIU/mL (0.34-5.60)
--- NOTE | 2020-01-08 02:39 | ED ---
Progress - Progress Note Progress Note: The patient is a sign-out from BRIELLE Espinoza, to Dr. Angie Miguel MD, at change of shift at 0230 on 01/08/20, pending psychiatric evaluation and disposition. Carly Hoffman and Dr. Cali have evaluated the patient's case and determined the patient safe for discharge. Patient to follow up with Dr. Cali as outpatient. Course/Dx - Diagnoses Provider Diagnoses: Depressive episode - Provider Notifications Discussed Care Of Patient With: Javi Cali - psychiatry Time Discussed With Above Provider: 03:45 Instructed by Provider To: Other - Carly Hoffman and Dr. Cali have evaluated the patient's case and determined the patient safe for discharge. Patient to follow up with Dr. Cali as outpatient. Discharge ED - Sign-Out/Discharge Documenting (check all that apply): Patient Departure - Patient will be discharged home., Receiving Sign-Out Receiving patient FROM: Aryan Salinas - Patient is a sign-out from BRIELLE Espinoza , at change of shift at 0230 on 01/08/20, pending MHE and disposition. - Discharge Plan Condition: Stable Disposition: HOME Patient Education Materials: Depression (DC) Referrals: [facility] [Outside] - Billing Disposition and Condition Condition: STABLE Disposition: Home - Attestation Statements Document Initiated by Preethi: Yes Documenting Scribe: Nina Shipley Provider For Whom Preethi is Documenting (Include Credential): Angie Miguel MD Scribe Attestation: Nina De Leon, scribed for Angie Miguel MD on 01/08/20 at 0535. Scribe Documentation Reviewed: Yes Provider Attestation: The documentation as recorded by the Nina acevedo accurately reflects the service I personally performed and the decisions made by me, Angie Miguel MD Status of Scribe Document: Viewed
[2020-01-08 03:55] VITALS: BP 178/66
== END 2020-01-08 03:52 | disposition home or self-care (01) ==
LOC: ED 20:42
DX: F32.9 Major depressive disorder, single episode, unspecified (principal); R45.851 Suicidal ideations; F90.9 Attention-deficit hyperactivity disorder, unspecified type; F84.0 Autistic disorder; Z79.899 Other long term (current) drug therapy
CPT/HCPCS: 36415; 80053; 80307; 80320; 80329; 81003; 84443; 85025; 99285; G0480

== ENCOUNTER 2020-01-26 11:53 | Emergency (ER) | payer MEDICAID ==
[2020-01-26 12:07] VITALS: BP 131/96
--- NOTE | 2020-01-26 12:07 | ED ---
Psychiatric Complaint - HPI Summary HPI Summary: Patient is a 24 y/o M from a shelter in [place] who presents to [facility] with SI yesterday and the day before. Patient is tangential in thought but redirectable. Hx of autism, ADHD, and bipolar disorder noted. He reports Hx of self-harm as well, noting that he has cut his arms previously. He denies HI, diarrhea, vomiting, fever, and pain. Patient is a non-smoker and denies alcohol and substance usage. Patient makes repeated requests for a phone. Home medications and allergies are reviewed. - History Of Current Complaint Time Seen by Provider: 01/26/20 11:55 Hx Obtained From: Patient Onset/Duration: Lasting Days Timing: Days Character: Depressed Has Suicidal: Reports: Thoughts Has Homicidal: Denies: Thoughts - Allergies/Home Medications Allergies/Adverse Reactions: Allergies Allergy/AdvReac Type Severity Reaction Status Date / Time pemoline Allergy Unknown Verified 01/07/20 21:11 Reaction Details shellfish derived Allergy Unknown Verified 01/07/20 21:11 Reaction Details thioridazine Allergy Unknown Verified 01/07/20 21:14 Reaction Details Home Medications: Home Medications ALPRAZolam TAB* [Xanax TAB*] 1 mg PO BID PRN 01/07/20 [History Confirmed ] Divalproex ER TAB(*) [Depakote ER TAB(*)] 500 mg PO DAILY PRN 01/07/20 [History Confirmed 01/07/20] Divalproex Sodium [Depakote] 500 mg PO BID 01/07/20 [History Confirmed 01/07/20] Paliperidone ER TAB* [Invega ER*] 1.5 mg PO DAILY 01/07/20 [History Confirmed ] Quetiapine Fumarate [Seroquel XR 400 mg Tab.Er.24h] 400 mg PO BEDTIME 01/07/20 [ History Confirmed 01/07/20] guanFACINE TAB* [Tenex TAB*] 1 mg PO QID 01/07/20 [History Confirmed 01/07/20] PMH/Surg Hx/FS Hx/Imm Hx Endocrine/Hematology History: Denies: Hx Anticoagulant Therapy Cardiovascular History: Denies: Hx Pacemaker/ICD History: Denies: Hx Dialysis Sensory History: Denies: Hx Eye Prosthesis, Hx Legally Blind, Hx Deafness Opthamlomology History: Denies: Hx Eye Prosthesis, Hx Legally Blind Neurological History: Denies: Hx Dementia Psychiatric History: Reports: Hx Attention Deficit Hyperactivity Disorder, Hx Autism, Hx Bipolar Disorder - + ADHD, Autism Denies: Hx Eating Disorder, Hx Depression, Hx Post Traumatic Stress Disorder , Hx Schizophrenia, Hx Suicide Attempt Infectious Disease History: Denies: Traveled Outside the [place] in Last 30 Days - Family History Known Family History: Positive: Other - bipolar disorder - Social History Alcohol Use: None Alcohol Amount: 0 Substance Use Type: Reports: None Hx Tobacco Use: Yes Smoking Status (MU): Never Smoked Tobacco Review of Systems Constitutional: Other - negative - pain Negative: Fever, Chills Negative: Vomiting, Diarrhea Psychological: Other - positive - SI; negative - HI All Other Systems Reviewed And Are Negative: Yes Physical Exam - Summary Physical Exam Summary: Constitutional: Well-developed, Well-nourished, Alert. (-) Distressed Skin: Warm, Dry HENT: Normocephalic; Atraumatic Eyes: Conjunctiva normal Neck: Musculoskeletal ROM normal neck. (-) JVD, (-) Stridor, (-) Tracheal deviation Cardio: Rhythm regular, rate normal, Heart sounds normal; Intact distal pulses; Radial pulses are 2+ and symmetric. (-) Murmur Pulmonary/Chest wall: Effort normal. (-) Respiratory distress, (-) Wheezes, (-) Rales Abd: Soft, (-) tenderness, (-) Distension, (-) Guarding, (-) Rebound Musculoskeletal: (-) Edema Lymph: (-) Cervical adenopathy Neuro: Alert, Oriented x3 Psych: Tangential thought but redirectable Triage Information Reviewed: Yes Vital Signs On Initial Exam: Initial Vital Signs Temp 97.3 F 01/26/20 12:01 Pulse 108 01/26/20 12:01 Resp 18 01/26/20 12:01 BP 131/96 01/26/20 12:01 Pulse Ox 100 01/26/20 12:01 Vital Signs Reviewed: Yes Procedures - Sedation Patient Received Moderate/Deep Sedation with Procedure: No Diagnostics - Laboratory Result Diagrams: 01/26/20 12:30 01/26/20 12:30 Lab Statement: Any lab studies that have been ordered have been reviewed, and results considered in the medical decision making process. Course/Dx - Course Course Of Treatment: Patient is here for mental health evaluation. Patient is medically cleared by myself. Patient was evaluated by the psychiatric team and deemed him safe for outpatient management. - Differential Dx/Clinical Impression Provider Diagnosis: Mood disorder - Physician Notifications Discussed Care Of Patient With: Javi Cali Time Discussed With Above Provider: 13:15 Instructed by Provider To: Other - Patient's case was reviewed with Dr. Cali, patient to be discharged to home. - Critical Care Time Critical Care Statement: Critical care time is provided exclusive of any time spent performing procedures. Discharge ED - Sign-Out/Discharge Documenting (check all that apply): Patient Departure - DISCHARGE - Discharge Plan Condition: Stable Disposition: HOME Referrals: No Primary Care Phys,NOPCP [Primary Care Provider] - - Billing Disposition and Condition Condition: STABLE Disposition: Home - Attestation Statements Document Initiated by Jakeibe: Yes Documenting Scribe: LYNNETTE SAUCEDO Provider For Whom Scribe is Documenting (Include Credential): FARIDA HOPPER MD Scribe Attestation: ILYNNETTE, scribed for FARIDA HOPPER MD on 01/26/20 at 1730. Scribe Documentation Reviewed: Yes Provider Attestation: The documentation as recorded by the LYNNETTE acevedo accurately reflects the service I personally performed and the decisions made by me, FARIDA HOPPER MD Status of Scribe Document: Viewed
--- OUTSIDE RECORDS SUMMARY | 2020-01-26 12:07 | XMS REPORT | Continuity of Care Document ---
:1995 Author Organization [facility] Address [address] [place] [address] Phone Care Team Providers Name Role Phone SOLIS LEIGH Unavailable Unavailable Allergies, Adverse Reactions, Alerts Substance Reaction Status Substance Type Unknown WARNIN allergy(ies) could not be collected because the type is not supported. Please contact [facility] for further details. Medications Medication Instructions [...] on Encounter 0001 - Emergency SHIRA ELY. [facility], [address] , [facility], [address], tel:[phone] [address], [address], [place] tel:[phone] 0001 - S Bipolar Sep- PI[employer]RUSZKIEWIC S Inc, Primary affective Z KATE. Care disorder, [facility] currently [facility], depressed, Hospitalist Clayton mildAdjustment Program [place], [place], disorder with Wing [address], [address], [place] mixed anxiety [place], tel:[phone] [place], [address]. [phone] moodAutism tel:[phone] spectrum [phone] - S Mood Sep- SHIRA ELY. S Inc, Primary disorderAdjustm [address] Care ent disorder [facility] [place], [address], anxiety and tel:[phone] Clayton depressed [address] [address], moodAutism [address], [place] spectrumPPD tel:[phone] screening test [phone] 0001 - S Dysuria Dec-0 YARDE MICHAEL. [facility], Walk-In [address] [place] [address] [place] [address], Street, [address]. [place] tel:[phone] [place], [place], [address], [place] tel:[phone] 0001 - S Adjustment SHIRA ELY. [facility], Primary disorder with [address] Care mixed anxiety , [place], [facility] [place], [address], moodAutism tel:[phone] Clayton spectrumMood [address] [place] [address], disorderWeight [address], [place] loss tel:[phone] 0001 - [facility] PPD screening CALE RENAE. [facility] Inc, Primary test 0-[address], [place], [facility] [place], [address]. [place], tel:[phone] Clayton [address] [place] [address], [address], [place] tel:[phone] 0001 - [facility] Procedure and Sep-0 ROSA MARIAKY SOLIS. [facility] Inc, Primary treatment not [address] Care carried out for 9 , [place], [facility], [address]. [place], tel:[phone] Clayton [address] [place] [address], [address], [place] tel:+ [phone] 0001 - [facility] Sleep Aug- ROSA MARIAKY SOLIS. S Inc, Primary disorderMood 0 [address] Care disorderAdjustm 9 , [place], [facility] [place] [place], [address]. Street, with mixed tel:[phone] Clayton anxiety and [address] [place] [address], depressed [address], [place] moodAutism tel:+60 spectrumBody [phone] mass index (BMI) 45.0-49.9, adultBody mass index (BMI) 39.0-39.9, adult 0001 - [facility] Autism John-0 ROSA MARIAKY SOLIS. S Inc, Primary spectrumAdjustm 9 [address] Care ent disorder [address], [place], [facility] [place], [address]. Street, anxiety and tel:[phone] Clayton depressed [address] [place] [address], moodMood [address], [place] disorderSleep tel:+60 disorder [phone] 0001 - [facility] General medical Edgar- ZAJERICAKY SOLIS. S Inc, Primary examAutism [address] Care spectrumSleep 9 , [place], [place], [address], ent disorder tel:[phone] [place] with mixed [address] [place], [place], anxiety [place] [address], [place] depressed tel: moodPPD [phone] screening testMood disorderBody mass index (BMI) 45.0-49.9, adult Family History Family Member Diagnosis Age At Onset Sister ADD/ADHD Immunizations Vaccine Date Status Comments Immunization Unknown Payers Payer name Insurance type Covered republican ID Authorization(s) Medicaid [place] [id number] Social History Type Description Quantity Date Captured [...] Instruction Additional Information Doing well today.Moving to retirement Related to Autism spectrum today. Will contact retirement RN today and discuss medication plan. Continue [...] now.Labs reviewed and no signs of malnourishment See above Related to Mood disorder Continue current medications. You are Related to Adjustment disorder taking Depakote and xanax at bedtime. with mixed anxiety and depressed Risks and benefits of new medication mood discussed.You have not been taking Seroquel or Risperdal.Restart Seroquel at bedtimeFollow up one month Continue with counseling with Ludwin at Related to Autism spectrum article 12 Please call with what meds you are [...] adult See above Related to Autism spectrum See above Related to Adjustment disorder with mixed anxiety and depressed mood Last visit we referred you to sleep Related to Sleep disorder center. Last visit restarted medication.We Related to Mood [...]
--- OUTSIDE RECORDS SUMMARY | 2020-01-26 12:07 | XMS REPORT | Continuity of Care Document ---
:[address] [facility] Address [address] [place] [address] Phone Care Team Providers Name Role Phone SOLIS LEIGH Unavailable Unavailable Allergies, Adverse Reactions, Alerts Substance Reaction Status Substance Type Unknown WARNIN allergy(ies) could not be collected because the type is not supported. Please contact [facility] for further details. Medications Medication Instructions [...] on Encounter 0001 - S SHIRA ELY. [employer], Primary 0-[address] Care 0 , [facility], [address]. [address], tel:[phone] [address], [address], [place] tel:[phone] 0001 - S Bipolar Dec-2 PIETRUSZKIEWIC [employer], Primary affective 201 [address] KATE. Care disorder, [facility] currently , [place], depressed, Hospitalist Clayton mildAdjustment Program [place], [place], disorder with [address], [address], [place] mixed anxiety [place], tel:[phone] [place], [address]. [phone] moodAutism tel:[phone] spectrum 622 0001 - S Mood Dec- SHIRA ELY. [employer], Primary disorderAdjustme [address] Care nt disorder with 9 , [facility] [place], [address], and depressed tel:[phone] Clayton moodAutism [address] [place] [address], spectrumPPD [address], [place] screening test tel:[phone] 0001 - S Dysuria Dec-0 YARDE DAVINIA. [employer], Walk-In [address] [place] [address] [place], [place], Street, [address]. [place] tel:[phone] [place], [place], [address], [place] tel:[phone] 0001 - S Adjustment Aug- SHIRA ELY. [employer], Primary disorder with [address] Care mixed anxiety [address], [place], [place], [address]. Street, moodAutism tel:[phone] Clayton spectrumMood [address] [place] [address], disorderWeight [address], [place] loss tel:[phone] 0001 - [facility] PPD screening CALE RENAE. [facility] Inc, Primary test 0 [address], [place], [place], [address]. [place], tel:[phone] [address], [address], [place] tel:[phone] 0001 - [facility] Procedure and Sep-0 SHIRA SOLIS. [facility] Inc, Primary treatment not [address] Care carried out for 9 St, [place], [place], [address]. [place], tel:[phone] [address], [address], [place] tel:[phone] 0001 - [facility] Sleep May- SHIRA SOLIS. [facility] Inc, Primary disorderMood 0 [address], [place], [place], [address]. [address], mixed anxiety tel:[phone] Clayton and depressed [address] [place] [address], moodAutism [address], [place] spectrumBody tel:+60 mass index (BMI) [phone] 45.0-49.9, adultBody mass index (BMI) 39.0-39.9, adult 0001 - [facility] Autism John-0 ROSA MARIAKY SOLIS. S Inc, Primary spectrumAdjustme [address] Care nt disorder with [address] St, [place], [place], [address]. [address], and depressed tel:[phone] Clayton moodMood [address] [place] [address], disorderSleep [address], [place] disorder tel:[phone] 0001 - [facility] General medical Edgar- ROSA MARIAKY SOLIS. [facility] Inc, Primary examAutism [address], [place], [place], [address]. [address], disorder with [phone] Clayton mixed anxiety [address] [place] [address], and depressed [address], [place] moodPPD tel: screening [phone] testMood disorderBody mass index (BMI) 45.0-49.9, adult Family History Family Member Diagnosis Age At Onset Sister ADD/ADHD Immunizations Vaccine Date Status Comments Immunization Unknown Payers Payer name Insurance type Covered libertarian ID Authorization(s) Medicaid Y[place] [id number] Social History Type Description Quantity Date Captured [...] Instruction Additional Information Doing well today.Moving to long term Related to Autism spectrum today. Will contact long term RN today and discuss medication plan. Continue [...]
--- OUTSIDE RECORDS SUMMARY | 2020-01-26 12:07 | XMS REPORT | Continuity of Care Document ---
:1994 Author Organization [facility] Address [address] [place] [address] Phone Care Team Providers Name Role Phone [facility], UNKNOWN Unavailable Unavailable Allergies, Adverse Reactions, Alerts Substance Reaction Status Substance Type Unknown WARNIN allergy(ies) could not be collected because the type is not supported. Please contact [facility] for further details. Medications Medication [...] on Encounter 0001 - Emergency [facility] Inc, Room - [facility] [address] 0 UNKNOWN. . [facility], [place], [address], [place] tel:[phone] 2019 - [facility] Bipolar Sep- PIETRUSZKIEWIC [facility], Primary affective Z KATE. 57 Care disorder, 9 57 [facility], [facility], Hospitalist Clayton mildAdjustment Program [place], [place], disorder with [address], [address], [place] mixed anxiety [place], tel:+60 [place], [address]. [phone] moodAutism tel:[phone] spectrum 622 0001 - [facility] Mood Dec- SHIRA ELY. [facility], Primary disorderAdjustm [address] Care ent disorder 9 [facility] [place], [address]. [place], anxiety and tel:[phone] Clayton depressed [address] [place] [address], moodAutism [address], [place] spectrumPPD tel:+60 screening test [phone] 0001 - [facility] Dysuria Dec-0 YARDE DAVINIA. [facility], Walk-In [address] [place], [place], Street, [address]. [place] tel:[phone] [place], [place], [address], [place] tel:[phone] 0001 - [facility] Adjustment Nov- SHIRA ORTEGAN. [facility] Inc, Primary disorder with [address] Care mixed anxiety 9 [facility] [place], [address]. Street, moodAutism tel:[phone] Clayton spectrumMood [address] [place] [address], disorderWeight [address], [place] loss tel:[phone] 0001 - [facility] PPD screening CALE RENAE. [facility] Inc, Primary test 0 [address] Care 9 [facility], [place], [address]. Street, tel:[phone] Clayton [address] [place] [address], [address], [place] tel:+ [phone] 0001 - [facility] Procedure and Sep- SHIRA SOLIS. [facility] Inc, Primary treatment not [address] Care carried out for 9 [facility], [facility] [place], [address]. Street, tel:[phone] Clayton [address] [place] [address], [address], [place] tel:+ [phone] 0001 - [facility] Sleep Aug- SHIRA SOLIS. [facility] Inc, Primary disorderMood 0 [address] Care disorderAdjustm 9 [facility], [facility] [place], [address]. Street, with mixed tel:[phone] Clayton anxiety and [address] [place] [address], depressed [address], [place] moodAutism tel:+60 spectrumBody [phone] mass index (BMI) 45.0-49.9, adultBody mass index (BMI) 39.0-39.9, adult 0001 - [facility] Autism John-0 ROSA MARIAKY SOLIS. [facility] Inc, Primary spectrumAdjustm [address] Care ent disorder 9 [facility], [facility] [place], [address]. [address], anxiety and tel:[phone] Clayton depressed [address] [place] [address], moodMood [address], [place] disorderSleep tel:+60 disorder [phone] 0001 - [facility] General medical Edgar- ROSA MARIAKY SOLIS. [facility] Inc, Primary examAutism [address] Care spectrumSleep 9 , [place], [facility] [place], [address]. [address], ent disorder tel:[phone] Clayton with mixed [address] [place], [place], anxiety [place] [address], [place] depressed tel:+ moodPPD [phone] screening testMood disorderBody mass index (BMI) 45.0-49.9, adult Family History Family Member Diagnosis Age At Onset Sister ADD/ADHD Immunizations Vaccine Date Status Comments Immunization Unknown Payers Payer name Insurance type Covered republican ID Authorization(s) Medicaid [place] [id number] Social History Type Description Quantity Date Captured [...] Instruction Additional Information Doing well today.Moving to [facility] Related to Autism spectrum today. Will contact [facility] RN today and discuss medication plan. Continue [...]
[2020-01-26 12:26] LABS: Urine Appearance Clear; Urine Bilirubin Negative (Negative); Urine Blood Negative (Negative); Urine Color Yellow; Urine Glucose Negative (Negative); Urine Ketones Negative (Negative); Urine Nitrite Negative (Negative); Urine Protein Negative (Negative); Urine Specific Gravity 1.029 (1.010-1.030); Urine Urobilinogen Negative (Negative)
[2020-01-26 12:41] LABS: ABS Eosinophils 0.1 10^3/ul (0-0.6); ABS Lymphocytes 2.8 10^3/ul (1.0-4.8); ABS Monocytes 0.4 10^3/ul (0-0.8); ABS Neutrophils 1.8 10^3/ul (1.5-7.7); Eosinophil % 2.1 %; Hematocrit 47 % (42-52); Hemoglobin 16.2 g/dL (14.0-18.0); Lymphocyte % 53.9 %; Mean Corpuscular HGB Conc 34 g/dL (31-36); Mean Corpuscular Hemoglobin 31 pg (27-31); Mean Corpuscular Volume 90 fL (80-94); Mean Platelet Volume 9.3 fL (7.4-10.4); Nucleated Red Blood Cells % 0.2; Platelet Count 140 10^3/uL (150-450); Red Blood Count 5.24 10^6 /uL (4.18-5.48); Red Cell Distribution Width 13 % (10-15); White Blood Count 5.2 10^3/uL (3.5-10.8)
[2020-01-26 12:48] LABS: Urine Benzodiazepine Screen Presumptive Positive (None Detect); Urine Opiates Screen None Detected (None Detect)
[2020-01-26 12:54] LABS: ALT 13 U/L (7-52); AST 24 U/L (13-39); Albumin 4.1 g/dL (3.2-5.2); Albumin/Globulin Ratio 1.5 (1-3); Alkaline Phosphatase 63 U/L (34-104); Anion Gap 7 mmol/L (2-11); BUN/Creatinine Ratio 17.6 (8-20); Blood Urea Nitrogen 18 mg/dL (6-24); CO2 Carbon Dioxide 24 mmol/L (22-32); Calcium 9.1 mg/dL (8.6-10.3); Chloride 110 mmol/L (101-111); EGFR African American 107.7 (>60); Globulin 2.7 g/dL (2-4); Glucose 91 mg/dL (70-100); Sodium 141 mmol/L (135-145); Total Protein 6.8 g/dL (6.4-8.9)
[2020-01-26 13:32] LABS: Acetaminophen < 15 mcg/mL; Alcohol < 10 mg/dL (<10); Salicylate < 2.50 mg/dL (<30)
== END 2020-01-26 13:07 | disposition home or self-care (01) ==
LOC: ED 11:53
DX: F39 Unspecified mood [affective] disorder (principal); Z88.8 Allergy status to other drugs, medicaments and biological substances; Z79.899 Other long term (current) drug therapy
CPT/HCPCS: 36415; 80053; 80307; 80320; 80329; 81003; 85025; 99284; G0480